=== PATIENT | female | born 1975 | race Caucasian/White ===

== ENCOUNTER 2017-07-23 12:06 | Outpatient (RCR) | payer OTHER, SELFPAY | END 2017-08-04 23:59 | LOC: NS 12:06 | PROVIDERS: Family Provider Internal Medicine; PCP Internal Medicine; Visit Provider Nurse Practitioner | DX: E66.9 Obesity, unspecified (principal); Z68.30 Body mass index [BMI] 30.0-30.9, adult; Z71.3 Dietary counseling and surveillance | CPT/HCPCS: 97803 ==

== ENCOUNTER 2017-08-20 10:30 | Outpatient (RCR) | payer OTHER, SELFPAY | END 2017-09-01 23:59 | LOC: NS 10:30 | PROVIDERS: Family Provider Internal Medicine; PCP Internal Medicine; Visit Provider Nurse Practitioner | DX: E66.9 Obesity, unspecified (principal); Z68.30 Body mass index [BMI] 30.0-30.9, adult; Z71.3 Dietary counseling and surveillance | CPT/HCPCS: 97803 ==

== ENCOUNTER 2017-10-01 08:00 | Outpatient (RCR) | payer OTHER, SELFPAY | END 2017-10-02 23:59 | LOC: NS 08:00 | PROVIDERS: Family Provider Internal Medicine; PCP Internal Medicine; Visit Provider Nurse Practitioner | DX: E66.9 Obesity, unspecified (principal); R63.5 Abnormal weight gain; Z68.30 Body mass index [BMI] 30.0-30.9, adult; Z71.3 Dietary counseling and surveillance | CPT/HCPCS: 97803 ==

== ENCOUNTER 2017-10-29 08:00 | Outpatient (RCR) | payer OTHER, SELFPAY | END 2017-11-01 23:59 | LOC: NS 08:00 | PROVIDERS: Family Provider Internal Medicine; PCP Internal Medicine; Visit Provider Nurse Practitioner | DX: E66.9 Obesity, unspecified (principal); R63.5 Abnormal weight gain; Z68.30 Body mass index [BMI] 30.0-30.9, adult; Z71.3 Dietary counseling and surveillance | CPT/HCPCS: 97803 ==

== ENCOUNTER 2018-06-16 07:59 | Day surgery (SDC) | payer OTHER, SELFPAY ==
--- NOTE | 2018-06-15 22:15 | PCM.HP.BLA ---
History and Physical Date of Admission: 06/16/18 HISTORY OF PRESENT ILLNESS 43 year old woman presents with an infected cystic lesion right upper lateral breast. It became larger with increasing pain and redness and swelling. It improved with Keflex antibiotics. She denies any nipple discharge. She denies any fever. She denies any trauma. She had a mammogram and ultrasound done last June and no suspicious abnormalities were seen. She presents at this time for further evaluation and treatment. PAST MEDICAL HISTORY Breast cyst Environmental allergies PAST SURGICAL HISTORY section. MEDICATIONS None. ALLERGIES Sulfa (Sulfonamide Antibiotics). FAMILY HISTORY Grandfather - Colon cancer SOCIAL HISTORY Smoking Status: Never smoker alcohol intake: current substance use type: does not use additional social history: DOES USE IBUPROFEN DOES NOT USE ASPIRIN REVIEW OF SYSTEMS General - Denies fever, fatigue, and weight loss. Eyes - Denies cataracts and glaucoma. ENT - Denies nasal congestion and sore throat. Endocrine - Denies excessive thirst and urination. Skin - Denies skin cancer. Has infected cystic lesion right upper lateral breast that improved with Keflex. Musculoskeletal - Denies joint pain, joint stiffness, weakness of muscles and joints, back pain, and arthritis. Neuro - Denies headaches. Cardiovascular - Denies chest pain, fatigue, and shortness of breath with exertion. Psych - Denies anxiety and depression. Respiratory - Denies chronic cough and shortness of breath. Gastrointestinal - Denies nausea, vomiting, diarrhea, and constipation. Hematologic - Denies abnormal bruising and bleeding. Genitourinary - Denies hematuria and urinary frequency. PHYSICAL EXAMINATION General - Alert and Oriented. HEENT - PERRL. EOMI. Throat is clear. No suspicious lesions noted. Neck - Supple and nontender. No cervical adenopathy. No suspicious lesions noted. Breasts - On the right upper lateral breast is a 12 mm cystic lesion that is slightly firm. No ulceration. Lesion is slightly tender to palpation. No cellulitis, fluctuance, or purulent drainage. Lungs - Clear to auscultation. Heart - Regular rate and rhythm. Abdomen - Soft and nondistended. Extremities - FROM. No axillary adenopathy. Radial pulses are palpable. No suspicious lesions noted. Neuro - CN II-XII grossly intact. Psych - Normal mood and affect. ASSESSMENT 12 mm infected cystic lesion right upper lateral breast. PLAN Recommend excision of this infected cystic lesion right upper lateral breast which can be done under local anesthesia and IV sedation on an outpatient basis. Will send tissue to Pathology for analysis to rule out carcinoma. If pus is seen at the time of surgery, then a wound culture will be obtained. May leave the wound open if pus is seen and proceed with Silver dressing changes daily. Depending on the healing, may proceed in a delayed fashion with a complex secondary wound closure. She had a mammogram and ultrasound done last June and no suspicious abnormalities were noted. If redness recurs prior to surgery, will restart her antibiotics. Patient was informed of the risks and complications of the procedure including alternatives to surgery. These were discussed with the patient personally. Patient voices understanding and wishes to proceed. Some of the risks and complications were included in a form from the [employer].
--- NOTE | 2018-06-16 | CYST_PTH ---
PATIENT: BRITNEY DESIR LOC: [facility] [place] U#:[id number] AGE/SX: 43/F ROOM: RE06/16/[address]: Dr. Clem Ceballos MD : 1975 BED: DIS: 06/16/2018 SPEC #: [id number] RECD: 06/16/18 13:11 STATUS: RUEL CHARLI #: [id number] DARIO: 06/16/18 00:[address]: Clem Ceballos DEPT: SURGICAL PATHOLOGY RECD BY: Emile Garrison ENTERED: 06/16/18 13:11 SP TYPE: Cyst OTHR DR: Dr. Kelsey Trivedi MD Tissues: Breast, NOS Procedures: Surgery Specimen Level IV HEADER OPERATION: Excision lesion upper lateral breast PRE-OP DIAGNOSIS: Infected cystic lesion right upper lateral breast TISSUE SUBMITTED: Infected cystic lesion right upper lateral breast MICROSCOPIC DIAGNOSIS Cystic lesion of right upper lateral breast, biopsy: Skin and soft tissue with epidermal inclusion cyst with associated chronic inflammation and associated fibrosis and changes consistent with rupture. No evidence of malignancy. AM:renaldo 06/17/18 MICROSCOPIC DESCRIPTION Slides are reviewed. GROSS DESCRIPTION Received in fixative is one container labeled with the patient's name and designated infected cystic lesion right upper lateral breast. The specimen consists of a shore-white skin ellipse measuring 1.5 x 0.4 cm and up to 0.3 cm in thickness. A suture is noted at one tip of the specimen. That half is inked with black ink. The opposite half is inked with blue ink. The specimen is not oriented for the positon of the suture. The specimen is longitudinally bisected and submitted entirely in one cassette. / SJ:rg 06/16/18 TC:5 CPT: 41307
[2018-06-16 08:37] LABS: Internal QC Validated? YES +Cl - CLEAR BKGD
[2018-06-16 08:38] VITALS: BP 91/66; PULSE 84; RESP 16; TEMP 37.5; O2SAT 99; BMI 27.9
[2018-06-16 08:40] LABS: Pregnancy, Urine Negative Negative
[2018-06-16] MEDS: Mupirocin Ointment 22gm Tube 1 APPLIC (11:05)
--- NOTE | 2018-06-16 11:16 | OP.PN_ITS ---
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 Post-Operative Diagnosis: Same. Surgery/Procedure Performed:: Excision 12 mm infected cystic lesion right upper lateral breast with 2.5 cm layered closure. Description of Surgical Findings:: 43 year old woman presents with an infected cystic lesion right upper lateral breast. It became larger with increasing pain and redness and swelling. It improved with Keflex antibiotics. She denies any nipple discharge. She denies any fever. She denies any trauma. She had a mammogram and ultrasound done last June which did not show any suspicious abnormalities. Today the patient underwent excision 12 mm infected cystic lesion right upper lateral breast with 2.5 cm layered closure. Estimated Blood Loss: 5 ml. Specimen's removed: Infected cystic lesion right upper lateral breast to Pathology and Microbiology. Drains: None. Type of Anesthesia:: Local - xylocaine with epinephrine. - Admit VTE Documentation VTE Present on Admission: No VTE Mechan Device Prophylaxis: SCD's VTE Pharm Prophylaxis ordered?: No
--- NOTE | 2018-06-16 11:23 | PCM.DC ---
You will use the following diet at home:: No restrictions Discharge Activity: May not drive while taking narcotic pain medications., May Shower - in two days. May shower in (days): 2 May resume sexual activity in: No Restrictions Weight Bearing Status: Weight bearing as tolerated Lifting Restrictions: 20 lbs. Call your doctor if your incision/area has: Continuous Slow Oozing, Sudden Increased Bleeding, Increased Pain/ Swelling, Increased Redness, Foul Smelling Discharge, Swelling at the incision site Call your doctor if you observe: Fever of 101 or Higher, Coldness, Increased Pain, Shortness of breath, Chest pain, Calf discomfort, Uncontrolled pain Suture Line Care: - - apply antibiotic ointment to suture line daily after operative dressing removed in two days. Remove Dressing in (days):: 2 Cleanse incision/area with: - - may get incision wet in the shower in two days. Allergies/Adverse Reactions: Allergies Sulfa (Sulfonamide Antibiotics) Allergy (Intermediate, Verified 06/07/18 08:28) WHOLE BODY RASH Medications to take at Discharge Cefadroxil [Duricef] 500 mg PO BID #14 cap 06/16/18 Oxycodone HCl/Acetaminophen [Percocet 5/325] 1 tab PO 4X/DAY PRN PRN 5 Days #20 tab 06/16/18 The following prescriptions were given: Oxycodone HCl/Acetaminophen [Percocet 5/325] 1 tab PO 4X/DAY PRN PRN 5 Days #20 tab PRN Reason: Pain Cefadroxil [Duricef] 500 mg PO BID #14 cap Primary Care Physician: Kelsey Trivedi MD [Primary Care Provider] - Test Results: Test results from this visit will be discussed in further detail at your follow-up appointment, if applicable. Please Follow Up With: Clem Ceballos MD When: one week. call [phone] for appt. Proposed Discharge Date: 06/16/18
--- NOTE | 2018-06-16 11:27 | DCINST_ITS ---
You will use the following diet at home:: No restrictions Discharge Activity: May not drive while taking narcotic pain medications., May Shower - in two days. May shower in (days): 2 May resume sexual activity in: No Restrictions Weight Bearing Status: Weight bearing as tolerated Lifting Restrictions: 20 lbs. Call your doctor if your incision/area has: Continuous Slow Oozing, Sudden Increased Bleeding, Increased Pain/ Swelling, Increased Redness, Foul Smelling Discharge, Swelling at the incision site Call your doctor if you observe: Fever of 101 or Higher, Coldness, Increased Pain, Shortness of breath, Chest pain, Calf discomfort, Uncontrolled pain Suture Line Care: - - apply antibiotic ointment to suture line daily after operative dressing removed in two days. Remove Dressing in (days):: 2 Cleanse incision/area with: - - may get incision wet in the shower in two days. Allergies/Adverse Reactions: Allergies Sulfa (Sulfonamide Antibiotics) Allergy (Intermediate, Verified 06/07/18 08:28) WHOLE BODY RASH Medications to take at Discharge Cefadroxil [Duricef] 500 mg PO BID #14 cap 06/16/18 Oxycodone HCl/Acetaminophen [Percocet 5/325] 1 tab PO 4X/DAY PRN PRN 5 Days #20 tab 06/16/18 The following prescriptions were given: Oxycodone HCl/Acetaminophen [Percocet 5/325] 1 tab PO 4X/DAY PRN PRN 5 Days #20 tab PRN Reason: Pain Cefadroxil [Duricef] 500 mg PO BID #14 cap Primary Care Physician: Kelsey Trivedi MD [Primary Care Provider] - Test Results: Test results from this visit will be discussed in further detail at your follow- up appointment, if applicable. Please Follow Up With: Clem Ceballos MD When: one week. call [phone] for appt. Proposed Discharge Date: 06/16/18
[2018-06-16] MEDS: Cefadroxil 500 MG CAPSULE 1000 MG PO (11:57)
--- NOTE | 2018-06-16 23:48 | PCM.OPRPT ---
Report of Operation Date of Procedure: 06/16/18 Pre-Operative Diagnosis: 12 mm infected cystic lesion right upper lateral breast. Post-Operative Diagnosis: Same. Surgery/Procedure Performed:: Excision 12 mm infected cystic lesion right upper lateral breast with 2.5 cm layered closure. Description of Surgical Findings:: 43 year old woman presents with an infected cystic lesion right upper lateral breast. It became larger with increasing pain and redness and swelling. It improved with Keflex antibiotics. She denies any nipple discharge. She denies any fever. She denies any trauma. She had a mammogram and ultrasound done last June which did not show any suspicious abnormalities. Patient was informed of the risks and complications of the procedure including alternatives to surgery. These were discussed with the patient personally. Patient voices understanding and wishes to proceed. Some of the risks and complications were included in a form from the [employer] [employer]. 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 Specimen's removed: Infected cystic lesion right upper lateral breast to Pathology and Microbiology. Drains: None. Estimated Blood Loss (mL): 5 ml. Description of Procedure: Patient was taken to OR in supine position. The right breast was prepped and draped in the usual fashion. SCD's were placed for DVT prophylaxis. Perioperative antibiotics were given orally since this was done under local anesthesia and no IV was placed. The right upper lateral breast area was infiltrated with xylocaine and epinephrine. After waiting 5 minutes for the anesthetic to take effect, The infected cystic lesion was excised in an oblique elliptical fashion into the subcutaneous tissue. Some dense scar tissue was seen that was also excised. No pus was seen. Some of the tissue was sent to Microbiology for culture. The rest of the lesion was sent to Pathology for analysis to rule out carcinoma. Hemostasis was obtained with electrocautery. The breast wound was closed in a layered fashion with 4-0 Monocryl interrupted sutures for the deep dermis and subcutaneous tissue. The skin was approximated with 4-0 Prolene simple interrupted sutures. Antibiotic ointment was applied to the suture line followed by a gauze dressing. The length of the suture line closure was 2.5 cm. Patient tolerated the procedure well and was sent to PACU in satisfactory condition. Patient will be sent home on antibiotics and pain medication. Patient will followup in a week for a wound check and for discussion of the pathology report and for discussion of the Microbiology report and for removal of the sutures. A positive culture may necessitate antibiotic modification. Grafts/Implants Used: None. - Complications None. - Admit VTE Documentation VTE Present on Admission: No VTE Mechan Device Prophylaxis: SCD's VTE Pharm Prophylaxis ordered?: No Code Visit Surgery Charges CPT - 29146 ICD-10 - N61.0, D49.2
--- OUTSIDE RECORDS SUMMARY | 2018-08-02 01:02 | XMS RPT_ITS ---
:1975 Author Organization OHIP Support Name Relationship Address Phone CARONATHALIEW Unavailable [address] + [place] [address] [facility] Unavailable [address] + [place] [address] ANDREW ELIZONDO Unavailable [address] + [place] [address] [facility] Unavailable [address] + [place] [address] ANDREW ELIZONDO Unavailable [address] + [place] [address] [facility] Unavailable [address] + [place] [address] ANDREW ELIZONDO Unavailable [address] + [place] [address] [facility] Unavailable [address] + [place] [address] Andrew Elizondo Unavailable [address] + [place] [address] [facility] Unavailable [address] + [place] [address] Lanie Albrecht Unavailable [address] + [place] [address] Andrew Elizondo Unavailable [address] [phone] [place] [address] [facility] Unavailable [address] + [place] [address] Lanie Albrecht Unavailable [address] + [place] [address] Andrew Elizondo Unavailable [address] [phone] [place] [address] [facility] Unavailable [address] + [place] [address] Lanie Albrecht Unavailable [address] + [place] [address] Andrew Elizondo Unavailable [address] [phone] [place] [address] [facility] Unavailable [address] + [place] [address] Lanie Albrecht Unavailable [address] + [place] [address] Andrew Elizondo Unavailable [address] [phone] [place] [address] [facility] Unavailable [address] + [place] [address] LANIE ALBRECHT Unavailable [address] + [place] [address] ANDREW ELIZONDO Unavailable [address] [phone] [place] [address] [facility] Unavailable [address] + [place] [address] Care Team Providers Name Role Phone GANTA, KELSEY Attending Unavailable RONN CASON ([facility]) Attending Unavailable GANTA, KELSEY Referring Unavailable GANTA, KELSEY Referring Unavailable GANTA, KELSEY Attending Unavailable RONN CASON ([facility]) Attending Unavailable GANTA, KELSEY Referring Unavailable RONN CASON ([facility]) Attending Unavailable Clem Ceballos Attending Unavailable Clem Ceballos Referring Unavailable Ganta, Kelsey Primary Care Unavailable Clem Ceballos Consulting Unavailable Clem Ceballos Attending Unavailable Clem Ceballos Referring Unavailable Ganta, Kelsey Primary Care Unavailable Clem Ceballos Consulting Unavailable Older Filomena NGOZI Attending Unavailable Older Filomena [employer] Referring Unavailable Ganta, Kelsey Primary Care Unavailable Older Filomena [employer] Attending Unavailable Older, Filomena [employer] Referring Unavailable Ganta, Kelsey Primary Care Unavailable [facility] Employee Attending Unavailable Shayy Spence Attending Unavailable Ganta, Kelsey Referring Unavailable Older [place] [employer] Attending Unavailable Older, Filomena [employer] Referring Unavailable Ganta, Kelsey Primary Care Unavailable Older, Filomena [employer] Attending Unavailable Older, Filomena [employer] Referring Unavailable Farooq, Kelsey Primary Care Unavailable Clem Ceballos Attending Unavailable Kelsey Milan Referring Unavailable Clem Ceballos Attending Unavailable Farooq, Kelsey Primary Care Unavailable Clem Ceballos Referring Unavailable PROBLEMS PROBLEMS DATE TYPE CONDITION / CODE ATTENDING STATUS SOURCE 06/20/2018 Unknown G89.18 - Other acute Clem Ceballos Active [facility] post[facility]cedural [facility] / G89.18(ICD-10) Hospital Repository 05/07/2018 Active Encounter for NA Active [facility] immunization / Clinic Main Z23(ICD-10) [facility] Repository 11/03/2017 Unknown E66.9 - Obesity, Older, Filomena [employer] Active [place] unspecified / Community E66.9(ICD-10) Hospital Repository 11/09/2017 Active Obesity, unspecified NA Active [facility] / E66.9(ICD-10) Clinic Main [facility] Rep[facility] 11/09/2017 Active Body mass index Active [facility] (bmi) 31.0-31.9, Clinic Main adult / [facility] Z68.31(ICD-10) Repository 11/09/2017 Active Encounter for NA Active [facility] screening for lipoid Clinic Main disorders / [facility] Z13.220(ICD-10) Repository 11/09/2017 Active Other fatigue / NA Active [facility] R53.83(ICD-10) Clinic Main [facility] Repository 11/09/2017 Active Abnormal results of Active [facility] thyroid function Clinic Main studies / [facility] R94.6(ICD-10) Repository PROCEDURES PROCEDURES No Procedure Records FoundRESULTS RESULTS PLASTIC SURGERY Observed: 06/28/2018 Status: F Source: [place] VISIT REPORT 7:44 PM [facility] [address] [facility] [address] [place] [address] OFFICE VISIT Date of Service: 06/22/18 MR#: [id number] Acct: [id number] Name: CARONGA Gregorio Rep #: [id number] : 1975 Provider: [place] Spence Age/Sex: 43/F Location: [facility] Status: Signed Intake Vital Signs06/22/18 Body Mass Index (BMI) 27.9 06/22/18 Blood Pressure 125/76 H H 06/22/18 Blood Pressure Location Rt brachial 06/22/18 Blood Pressure Position Sitting 06/22/18 Respiratory Rate 16 Intake Visit Reasons: post op surgery 06/16/18 Area Operations Director Required: No Accompanied by: None Is patient in pain?: No Allergies Sulfa (Sulfonamide Antibiotics) Allergy (Intermediate, Verified 06/22/18 09:12) WHOLE BODY RASH Medications Cefadroxil [Duricef] 500 mg PO BID #14 cap 06/16/18 [Rx] PFSH Medical History Breast cyst (Acute) Environmental allergies (Acute) Surgical History H/O: section (Acute) Family History Grandfather Colon cancer Social History Smoking Status: Never smoker alcohol intake: current substance use type: does not use additional social history: DOES USE IBUPROFEN DOES NOT USE ASPIRIN HPI post op surgery 06/16/18: Details: Postop visit from her recent surgery on 06/16/18 where she underwent excision 12 mm infected cystic lesion right upper lateral breast with 2.5 cm layered closure. Patient is doing well today. She denies any complaints. Her incision is dry and intact. Discussed pathology with patient. The lesion was an epidermal inclusion cyst with associated chronic inflammation and associated fibrosis and changes consistent with rupture. No evidence of malignancy. Operative culture was discussed with the patient. The culture was negative. Sutures were removed today without difficulty. Encouraged patient to massage the incision daily with skin lotion to help soften up the scar. Follow up on an as needed basis. Assessment AND Plan Problems 1. Epidermal inclusion cyst L72.0 2. Mastitis in female N61.0 Coding Level of Care Code Global Post Op Diagnoses Epidermal inclusion cyst L72.0 Mastitis in female N61.0 06/28/181943 <Electronically signed by Shayy Spence CLINICAL MANAGER-C> Date Shayy Spence CLINICAL MANAGER-C 06/27/1822<Electronically signed by Clem Ceballos MD> Cosigner Signature: Date (if applicable) Clem Ceballos MD CC: OPERATIVE REPORT Observed: 06/20/2018 Status: F Source: [place] 5:35 PM [facility] Medical Records Department [address] [place] [address] Operative Report 06/16/18 2348 MR#: [id number] Acct: [id number] Name: NGA ELIZONDO Rep #: [id number] : 1975 43 From: Clem Ceballos MD PCP: Kelsey Milan MD Status: [facility] [place] Location: [facility] Report of Operation Date of Procedure: 06/16/18 Pre-Operative Diagnosis: 12 mm infected cystic lesion right upper lateral breast. Post-Operative Diagnosis: Same. Surgery/Procedure Performed:: Excision 12 mm infected cystic lesion right upper lateral breast with 2.5 cm layered closure. Description of Surgical Findings:: 43 year old woman presents with an infected cystic lesion right upper lateral breast. It became larger with increasing pain and redness and swelling. It improved with Keflex antibiotics. She denies any nipple discharge. She denies any fever. She denies any trauma. She had a mammogram and ultrasound done last June which did not show any suspicious abnormalities. Patient was informed of the risks and complications of the procedure including alternatives to surgery. These were discussed with the patient personally. Patient voices understanding and wishes to proceed. Some of the risks and complications were included in a form from the [employer]. 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 Specimen's removed: Infected cystic lesion right upper lateral breast to Pathology and Microbiology. Drains: None. Estimated Blood Loss (mL): 5 ml. Description of Procedure: Patient was taken to OR in supine position. The right breast was prepped and draped in the usual fashion. SCD's were placed for DVT prophylaxis. Perioperative antibiotics were given orally since this was done under local anesthesia and no IV was placed. The right upper lateral breast area was infiltrated with xylocaine and epinephrine. After waiting 5 minutes for the anesthetic to take effect, The infected cystic lesion was excised in an oblique elliptical fashion into the subcutaneous tissue. Some dense scar tissue was seen that was also excised. No pus was seen. Some of the tissue was sent to Microbiology for culture. The rest of the lesion was sent to Pathology for analysis to rule out carcinoma. Hemostasis was obtained with electrocautery. The breast wound was closed in a layered fashion with 4-0 Monocryl interrupted sutures for the deep dermis and subcutaneous tissue. The skin was approximated with 4-0 Prolene simple interrupted sutures. Antibiotic ointment was applied to the suture line followed by a gauze dressing. The length of the suture line closure was 2.5 cm. Patient tolerated the procedure well and was sent to PACU in satisfactory condition. Patient will be sent home on antibiotics and pain medication. Patient will followup in a week for a wound check and for discussion of the pathology report and for discussion of the Microbiology report and for removal of the sutures. A positive culture may necessitate antibiotic modification. Grafts/Implants Used: None. - Complications None. - Admit VTE Documentation VTE Present on Admission: No VTE Mechan Device Prophylaxis: SCD's VTE Pharm Prophylaxis ordered?: No Code Visit Surgery Charges CPT - 24572 ICD-10 - N61.0, D49.2 06/20/18 1735 <Electronically signed by Clem Ceballos MD> Date Clem Ceballos MD CC: Kelsey Milan MD; Clem Ceballos MD Signed HISTORY AND PHYSICAL Observed: 06/19/2018 Status: F Source: [place] EXAM 1:20 AM [facility] Medical Records Department [address] [place] [address] History and Physical 06/15/18 2215 MR#: [id number] Acct: [id number] Name: NGA ELIZONDO Rep #: [id number] : 1975 43 From: Clem Ceballos MD PCP: Kelsey Milan MD Status: [facility] Y Location: [facility] History and Physical Date of Admission: 06/16/18 HISTORY OF PRESENT ILLNESS 43 year old woman presents with an infected cystic lesion right upper lateral breast. It became larger with increasing pain and redness and swelling. It improved with Keflex antibiotics. She denies any nipple discharge. She denies any fever. She denies any trauma. She had a mammogram and ultrasound done last June and no suspicious abnormalities were seen. She presents at this time for further evaluation and treatment. PAST MEDICAL HISTORY Breast cyst Environmental allergies PAST SURGICAL HISTORY section. MEDICATIONS None. ALLERGIES Sulfa (Sulfonamide Antibiotics). FAMILY HISTORY Grandfather - Colon cancer SOCIAL HISTORY Smoking Status: Never smoker alcohol intake: current substance use type: does not use additional social history: DOES USE IBUPROFEN DOES NOT USE ASPIRIN REVIEW OF SYSTEMS General - Denies fever, fatigue, and weight loss. Eyes - Denies cataracts and glaucoma. ENT - Denies nasal congestion and sore throat. Endocrine - Denies excessive thirst and urination. Skin - Denies skin cancer. Has infected cystic lesion right upper lateral breast that improved with Keflex. Musculoskeletal - Denies joint pain, joint stiffness, weakness of muscles and joints, back pain, and arthritis. Neuro - Denies headaches. Cardiovascular - Denies chest pain, fatigue, and shortness of breath with exertion. Psych - Denies anxiety and depression. Respiratory - Denies chronic cough and shortness of breath. Gastrointestinal - Denies nausea, vomiting, diarrhea, and constipation. Hematologic - Denies abnormal bruising and bleeding. Genitourinary - Denies hematuria and urinary frequency. PHYSICAL EXAMINATION General - Alert and Oriented. HEENT - PERRL. EOMI. Throat is clear. No suspicious lesions noted. Neck - Supple and nontender. No cervical adenopathy. No suspicious lesions noted. Breasts - On the right upper lateral breast is a 12 mm cystic lesion that is slightly firm. No ulceration. Lesion is slightly tender to palpation. No cellulitis, fluctuance, or purulent drainage. Lungs - Clear to auscultation. Heart - Regular rate and rhythm. Abdomen - Soft and nondistended. Extremities - FROM. No axillary adenopathy. Radial pulses are palpable. No suspicious lesions noted. Neuro - CN II-XII grossly intact. Psych - Normal mood and affect. ASSESSMENT 12 mm infected cystic lesion right upper lateral breast. PLAN Recommend excision of this infected cystic lesion right upper lateral breast which can be done under local anesthesia and IV sedation on an outpatient basis. Will send tissue to Pathology for analysis to rule out carcinoma. If pus is seen at the time of surgery, then a wound culture will be obtained. May leave the wound open if pus is seen and proceed with Silver dressing changes daily. Depending on the healing, may proceed in a delayed fashion with a complex secondary wound closure. She had a mammogram and ultrasound done last June and no suspicious abnormalities were noted. If redness recurs prior to surgery, will restart her antibiotics. Patient was informed of the risks and complications of the procedure including alternatives to surgery. These were discussed with the patient personally. Patient voices understanding and wishes to proceed. Some of the risks and complications were included in a form from the [employer]. 06/19/18 0120 <Electronically signed by Clem Ceballos MD> Date Clem Ceballos MD Cosigner Signature: Date (if applicable) CC: Kelsey Milan MD; Clem Ceballos MD Signed DISCHARGE INSTRUCTION Observed: 06/16/2018 Status: F Source: [place] 11:28 AM [facility] Medical Records Department [address] [place] [address] Instructions for Home/Discharge Instructions 06/16/18 1123 MR#: [id number] Acct: [id number] Name: NGA ELIZONDO Rep #: [id number] : 1975 43 From: Clem Ceballos MD PCP: Kelsey Milan MD Status: [facility] You will use the following diet at home:: No restrictions Discharge Activity: May not drive while taking narcotic pain medications., May Shower - in two days. May shower in (days): 2 May resume sexual activity in: No Restrictions Weight Bearing Status: Weight bearing as tolerated Lifting Restrictions: 20 lbs. Call your doctor if your incision/area has: Continuous Slow Oozing, Sudden Increased Bleeding, Increased Pain/ Swelling, Increased Redness, Foul Smelling Discharge, Swelling at the incision site Call your doctor if you observe: Fever of 101 or Higher, Coldness, Increased Pain, Shortness of breath, Chest pain, Calf discomfort, Uncontrolled pain Suture Line Care: - - apply antibiotic ointment to suture line daily after operative dressing removed in two days. Remove Dressing in (days):: 2 Cleanse incision/area with: - - may get incision wet in the shower in two days. Allergies/Adverse Reactions: Allergies Sulfa (Sulfonamide Antibiotics) Allergy (Intermediate, Verified 06/07/18 08:28) WHOLE BODY RASH Medications to take at Discharge Cefadroxil [Duricef] 500 mg PO BID #14 cap 06/16/18 Oxycodone HCl/Acetaminophen [Percocet 5/325] 1 tab PO 4X/DAY PRN PRN 5 Days #20 tab 06/16/18 The following prescriptions were given: Oxycodone HCl/Acetaminophen [Percocet 5/325] 1 tab PO 4X/DAY PRN PRN 5 Days #20 tab PRN Reason: Pain Cefadroxil [Duricef] 500 mg PO BID #14 cap Primary Care Physician: Kelsey Milan MD [Primary Care Provider] - Test Results: Test results from this visit will be discussed in further detail at your follow-up appointment, if applicable. Please Follow Up With: Clem Ceballos MD When: one week. call [phone] for appt. Proposed Discharge Date: 06/16/18 06/16/18 1128 <Electronically signed by Clem Ceballos MD> Date lCem Ceballos MD CC: Kelsey Milan MD Observed: 06/16/2018 Status: F Source: [place] CULTURE, DEEP WOUND 11:00 AM [facility] Order Date: 02/03/17 Has pt arrived? Y Comments: INFECTED CYSTIC LESION RIGHT UPPER LATERAL BREAST Gram Stain Gram Stain 1+ Red Cell Stroma No organisms seen Wound Culture No growth aerobically. Cult, Anaerobic No growth in 5 days. Performed By: #### M100.1500 #### [facility] [address] [place], [address] Observed: 06/16/2018 Status: F Source: [place] CULTURE, FUNGUS W/ 11:00 AM [facility] [id number] REPOSITORY Comments: INFECTED CYSTIC LESION RIGHT UPPER LATERAL BREAST Has pt arrived? Y Is this test to exclude patient from TB Isolation? N Cu,[id number] TESTING PERFORMED AT [facility]. ORIGINAL REPORT ON FILE IN LAB CONTAINS ADDITIONAL TEST SITE INFORMATION. CUF No yeast or mold isolated after [address] TESTING PERFORMED AT [facility]. ORIGINAL REPORT ON FILE IN LAB CONTAINS ADDITIONAL TEST SITE INFORMATION. Fungus Stain No yeast or mold observed. Performed By: #### M600.1900 #### [facility] [address] [place] [address]. [place], [place], [address] ,URINE Collected: 06/16/2018 Status: F Source: [place] 8:20 AM [facility] TYPE CODE TESTS RESULT OUT OF REFERENCE UNITS RANGE LAB L400.8000 Negative Normal HCGUQUAL Negative Result Comment: Very dilute urine specimens, as indicated by a low specific gravity, may not contain direct sales representative levels of hCG. If is still suspected, a first morning urine specimen should be collected 48 hours later and tested. Performed By: #### L400.7600 #### [facility] [address] [place] [address]. [place], [address] CYST Observed: 06/16/2018 Status: F Source: [place] 12:00 AM [facility] Patient: NGA ELIZONDO : 1975 (43/F) Acct Num: [id number] Phys: Clem Ceballos MD Unit Num: [id number] Loc: [facility] Specimen: [id number] Received: 06/16/18 - 1310 Spec Type: Cyst TISSUES 1 TISSUES: Breast, NOS GROSS DESCRIPTION Received in fixative is one container labeled with the patient's name and designated infected cystic lesion right upper lateral breast. The specimen consists of a shore-white skin ellipse measuring 1.5 x 0.4 cm and up to 0.3 cm in thickness. A suture is noted at one tip of the specimen. That half is inked with black ink. The opposite half is inked with blue ink. The specimen is not oriented for the positon of the suture. The specimen is longitudinally bisected and submitted entirely in one cassette. / SJ:renaldo 06/16/18 TC:5 CPT: 40774 HEADER OPERATION: Excision lesion upper lateral breast PRE-OP DIAGNOSIS: Infected cystic lesion right upper lateral breast TISSUE SUBMITTED: Infected cystic lesion right upper lateral breast MICROSCOPIC DESCRIPTION Slides are reviewed. MICROSCOPIC DIAGNOSIS Cystic lesion of right upper lateral breast, biopsy: Skin and soft tissue with epidermal inclusion cyst with associated chronic inflammation and associated fibrosis and changes consistent with rupture. No evidence of malignancy. AM:renaldo 06/17/18 Signed Kristian Smith DO 06/17/18 <signature on file> Performed By: #### PCYST #### [facility] [address] [place] [address]. [place], [address] PLASTIC SURGERY Observed: 05/15/2018 Status: F Source: [place] VISIT REPORT 2:05 PM [facility] [address] [facility] [address] [place], [place] [address] OFFICE VISIT Date of Service: 05/12/18 MR#: [id number] Acct: [id number] Name: NGA ELIZONDO Rep #: [id number] : 1975 Provider: Clem Ceballos MD Age/Sex: 43/F Location: [facility] Status: Signed Intake Vital Signs05/12/18 Height 4 ft 8.5 in 05/12/18 Weight: 129 lb 8 oz Intake Visit Reasons: evaluation infected cystic lesion right upper lateral breast Area Operations Director Required: No Accompanied by: None Is patient in pain?: No Allergies Sulfa (Sulfonamide Antibiotics) Allergy (Intermediate, Verified 05/12/18 15:11) WHOLE BODY RASH Is last menstrual period known: Yes Post menopausal: No Patient : No PFSH Medical History Breast cyst (Acute) Environmental allergies (Acute) Surgical History H/O: section (Acute) Family History Grandfather Colon cancer Social History Smoking Status: Never smoker alcohol intake: current substance use type: does not use additional social history: DOES USE IBUPROFEN DOES NOT USE ASPIRIN HPI evaluation infected cystic lesion right upper lateral breast: Details: HISTORY OF PRESENT ILLNESS 43 year old woman presents with an infected cystic lesion right upper lateral breast. It became larger with increasing pain and redness and swelling. It improved with Keflex antibiotics. She denies any nipple discharge. She denies any fever. She denies any trauma. She states her last mammogram were within the last year at the [facility]. She presents at this time for further evaluation and treatment. REVIEW OF SYSTEMS General - Denies fever, fatigue, and weight loss. Eyes - Denies cataracts and glaucoma. ENT - Denies nasal congestion and sore throat. Endocrine - Denies excessive thirst and urination. Skin - Denies skin cancer. Has infected cystic lesion right upper lateral breast that improved with Keflex. Musculoskeletal - Denies joint pain, joint stiffness, weakness of muscles and joints, back pain, and arthritis. Neuro - Denies headaches. Cardiovascular - Denies chest pain, fatigue, and shortness of breath with exertion. Psych - Denies anxiety and depression. Respiratory - Denies chronic cough and shortness of breath. Gastrointestinal - Denies nausea, vomiting, diarrhea, and constipation. Hematologic - Denies abnormal bruising and bleeding. Genitourinary - Denies hematuria and urinary frequency. PHYSICAL EXAMINATION General - Alert and Oriented. HEENT - PERRL. EOMI. Throat is clear. No suspicious lesions noted. Neck - Supple and nontender. No cervical adenopathy. No suspicious lesions noted. Breasts - On the right upper lateral breast is a 12 mm cystic lesion that is slightly firm. No ulceration. Lesion is slightly tender to palpation. No cellulitis, fluctuance, or purulent drainage. Lungs - Clear to auscultation. Heart - Regular rate and rhythm. Abdomen - Soft and nondistended. Extremities - FROM. No axillary adenopathy. Radial pulses are palpable. No suspicious lesions noted. Neuro - CN II-XII grossly intact. Psych - Normal mood and affect. ASSESSMENT 12 mm infected cystic lesion right upper lateral breast. PLAN Recommend excision of this infected cystic lesion right upper lateral breast which can be done under local anesthesia and IV sedation on an outpatient basis. Will send tissue to Pathology for analysis to rule out carcinoma. If pus is seen at the time of surgery, then a wound culture will be obtained. May leave the wound open if pus is seen and proceed with Silver dressing changes daily. Depending on the healing, may proceed in a delayed fashion with a complex secondary wound closure. Prior to surgery will obtain the mammogram report that she states was done earlier in the year at the [facility]. If redness recurs prior to surgery, will restart her antibiotics. Patient was informed of the risks and complications of the procedure including alternatives to surgery. These were discussed with the patient personally. Patient voices understanding and wishes to proceed. Some of the risks and complications were included in a form from the [employer]. Assessment AND Plan Problems 1. 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 Mastitis in female N61.0 05/15/18 1405 <Electronically signed by Clem Ceballos MD> Date Clem Ceballos MD Cosigner Signature: Date (if applicable) CC: Kelsey Milan MD CNNURSE Observed: 05/07/2018 Status: COMPLETED Source: [facility] 9:50 AM [facility] REPOSITORY Nurse Visit (CORWST) NGA ELIZONDO ([id number]) 1975 F Date Time Provider Department 05/07/18 9:50 AM [facility] During your visit today, we recorded the following information about you: Caleb Enoc SCHWARZ 05/07/2018 10:06 AM Signed 43 year old female here for INACTIVATED INFLUENZA VACCINE. [id number] Season Patient is identified by name and date of : Yes [] CONTRAINDICATIONS color enhanced section Age less than 6 months? No Allergy to eggs, chicken, chicken feathers, or chicken dander? No Allergy to thimerosal (a preservative) or formaldehyde, gelatin? No History of severe reaction to any vaccine component or a previous dose of influenza vaccination? No History of Guillain-Darlington Syndrome within 6 weeks after a previous influenza vaccine? No Patient is not moderately or severely ill? No Current temperature greater or equal to 100.4F? No History of Bone Marrow Transplant prior 6 months or solid organ transplant in the past 3 months ? No History of fainting after a prior injection or medical procedure? No- ? If patient has fainted in the past, the CDC recommends sitting or lying down for 15 minutes after the vaccination. [] VERIFICATION color enhanced section Was the answer Yes for any of the above contraindications? No contraindications present. Acceptable to proceed with vaccine. Patient/guardian agrees the above answers are true to the best of their knowledge? Yes Flu vaccine information sheet given? Yes See immunization activity in [facility] for details of immunizations adminstered today. Patient age: [age] year old For The 1918-3042 Flu Season 6-35 months old: Fluzone 0.25 ml - IM (Preservative Free) 3 years of age: Fluzone 0.5 ml - IM (Preservative Free) 3 years and older: Fluzone 0.5 ml- IM-(with Preservatives) 65+ years old: 2-49 years old Fluzone High-Dose 0.5 ml - IM (Preservative Free) FLUMIST- intranasal REMEMBER: If patient is less than 9 years of age and this is the first vaccine of Influenza to be received in any flu season, they should receive a second dose in one months time. Referring Provider: SELF [200] Allergies As of Date: 05/07/2018 Noted Allergy Reaction SULFA (SULFONAMIDE ANTIBIOTICS) 11/02/2008 2 - Rash Date Reviewed: 04/11/2018 Reviewed by: Rupali Estevez Ma - Fully Assessed Reason for Visit: Imm/Inj [58] Cmt: Flu Vaccine Primary Visit Diagnosis:Need for vaccination [Z23] Order(s):INFLUENZA VACCINE QUADRIVALENT AGE 3 YRS PLUS + IM [[id number]] Order #: [id number] Prescriptions as of 05/07/2018 Sig: BUPROPION XL 150 MG TAB Take 1 tablet by mouth once d* HYDROCORTISONE ACETATE 25 MG * 1 Suppository by RECTAL route* Patient not taking: Reported on 12/14/2017 * MULTIVITAMIN TABLET Take one(1) tablet daily. Problem List As Of Date 05/07/2018 Noted Resolved Cervicalgia [M54.2] INVALID FOR* Other symptoms involving head and neck [R68.89] INVALID FOR* Backache, unspecified [M54.9] INVALID FOR* Pain in joint, pelvic region and thigh [M25.559]INVALID FOR* Enlarged uterus [N85.2] INVALID FOR* Encounter Status:Closed by CALEB SANON LPN on 05/07/18 PROGRESS Observed: 05/03/2018 Status: COMPLETED Source: [facility] 4:13 PM [facility] [place] REPOSITORY HNO ID: [id number] Author: Caleb Sanon LPN Service: (none) Author Type: (none) Type: Progress Notes Filed: 05/07/2018 10:06 AM Note Text: 43 year old female here for INACTIVATED INFLUENZA VACCINE. [id number] Season Patient is identified by name and date of : Yes [] CONTRAINDICATIONS color enhanced section Age less than 6 months? No Allergy to eggs, chicken, chicken feathers, or chicken dander? No Allergy to thimerosal (a preservative) or formaldehyde, gelatin? No History of severe reaction to any vaccine component or a previous dose of influenza vaccination? No History of Guillain-Darlington Syndrome within 6 weeks after a previous influenza vaccine? No Patient is not moderately or severely ill? No Current temperature greater or equal to 100.4F? No History of Bone Marrow Transplant prior 6 months or solid organ transplant in the past 3 months ? No History of fainting after a prior injection or medical procedure? No- ? If patient has fainted in the past, the CDC recommends sitting or lying down for 15 minutes after the vaccination. [] VERIFICATION color enhanced section Was the answer Yes for any of the above contraindications? No contraindications present. Acceptable to proceed with vaccine. Patient/guardian agrees the above answers are true to the best of their knowledge? Yes Flu vaccine information sheet given? Yes See immunization activity in [facility] for details of immunizations adminstered today. Patient age: [age] year old For The 9032-7011 Flu Season 6-35 months old: Fluzone 0.25 ml - IM (Preservative Free) 3 years of age: Fluzone 0.5 ml - IM (Preservative Free) 3 years and older: Fluzone 0.5 ml- IM-(with Preservatives) 65+ years old: 2-49 years old Fluzone High-Dose 0.5 ml - IM (Preservative Free) FLUMIST- intranasal REMEMBER: If patient is less than 9 years of age and this is the first vaccine of Influenza to be received in any flu season, they should receive a second dose in one months time. PROGRESS Observed: 04/11/2018 Status: COMPLETED Source: [facility] 8:22 AM [facility] REPOSITORY HNO ID: [id number] Author: Ronn Cason Service: (none) Author Type: Nurse Practitioner Type: Progress Notes Filed: 04/11/2018 8:43 AM Note Text: CC: Patient presents with: Derm Problem: Infected Cyst, puppet master recommended it being removed last November HPI Nga Elizondo is a 43 year old female who presents today for infected cyst to right chest x1 week. Patient reports chronic cyst like structure to right anterior chest. Reports she has had it expressed several times in the past by her puppet master. Most recently area has become enlarged over the past several weeks with noted redness, pain and pus like drainage x1 day. Notes area has decreased in size. Associated symptoms include itching and burning of the area. Attempted neosporin for relief. REVIEW OF SYSTEMS General: no fevers, no chills, no night sweats and no change in energy Respiratory: no cough, no wheezing, no shortness of breath, no hemoptysis Cardiovascular: no chest pain, no chest pressure, no palpitations and no swelling Skin: See HPI PAST MEDICAL HISTORY Diagnosis Date - NEGATIVE MEDICAL HISTORY PAST SURGICAL HISTORY Procedure Laterality Date - ANESTH, SECTION 04/29/2005 - PAST SURGICAL HISTORY OF wisdom teeth extract ALLERGIES Sulfa (Sulfonamide Antibiotics) MEDICATIONS buPROPion XL (WELLBUTRIN XL) 150 mg 24 hr tablet Take 1 tablet by mouth once daily. hydrocortisone (ANUSOL-HC) 25 mg suppository 1 Suppository by RECTAL route twice daily as needed. multivitamin (DAILY MULTI-VITAMIN) ORAL tablet Take one(1) tablet daily. FAMILY HISTORY Problem Relation Age of Onset - Thyroid Mother hypothyroidism - Prostate Cancer Father - Diabetes Maternal Grandmother - Headache Paternal Grandmother - Colon Cancer Paternal Grandfather Social History Substance Use Topics - Smoking status: Never Smoker - Smokeless tobacco: Never Used - Alcohol use Yes Comment: rare PHYSICAL EXAM BP 124/66 Pulse 76 Temp 37 ?C (98.6 ?F) (Temporal Artery) Resp 16 Wt 58.5 kg (129 lb) SpO2 98% BMI 28.92 kg/m? General Appearance: well appearing, in no acute distress, alert Skin: Skin color, texture, turgor normal for age; Positive erythematous nodule to right anterior chest +fluctuance, no active drainage Head: normocephalic, atraumatic Lungs: Lungs clear to auscultation. No wheezing, rhonchi, rales Heart: RRR without murmur, gallop, or rubs. No ectopy INFLUENZA(1) due on 03/05/2018 MAMMOGRAM due on 06/14/2018 DTAP,TDAP,TD(2 - Td) due on 12/25/2018 DIABETES SCREEN due on 11/09/2020 PAP EVERY 5 YEARS due on 07/20/2022 HPV EVERY 5 YEARS due on 07/20/2022 LIPID SCREEN due on 11/09/2022 ASSESSMENT/PLAN: 1. Cutaneous abscess of chest wall - ICD9: 682.2, ICD10: L02.213 - Begin treatment with Cephalaxin (Keflex) - Warm compresses - Discussed consult to derm vs gen surgery for excision once infection clears, patient to decide consult preference and notify office - No lymphangetic streaking, this was defined for patient to watch for and to seek medical care immediately if appears - Area of cellulitis defined with pen, seek further attention if this area continues to enlarge - Follow up for recheck in 3 days, sooner for new or worsening symptoms - CEPHALEXIN 500 MG CAPSULE Ronn Cason APRN.NGOZI Prescription instructions reviewed with patient as applicable. Potential red flag symptoms discussed with the patient. Reviewed appropriate action plan to take if red flag symptoms occur. Patient agreeable to treatment plan. CNOV Observed: 04/11/2018 Status: COMPLETED Source: [facility] 8:00 AM [facility] REPOSITORY Office Visit (INTMWS) NGA ELIZONDO ([id number]) 1975 F Date Time Provider Department 04/11/18 8:00 AM RONN CASON ([employer]) INTMWS During your visit today, we recorded the following information about you: Temperature Pulse Respiration Blood pressure 98.6 degrees 76/minute 16/minute 124/66 Weight 58.5 kg Ronn Cason APRN.CNP 04/11/2018 8:43 AM Signed CC: Patient presents with: Derm Problem: Infected Cyst, puppet master recommended it being removed last November HPI Nga Elizondo is a 43 year old female who presents today for infected cyst to right chest x1 week. Patient reports chronic cyst like structure to right anterior chest. Reports she has had it expressed several times in the past by her puppet master. Most recently area has become enlarged over the past several weeks with noted redness, pain and pus like drainage x1 day. Notes area has decreased in size. Associated symptoms include itching and burning of the area. Attempted neosporin for relief. REVIEW OF SYSTEMS General: no fevers, no chills, no night sweats and no change in energy Respiratory: no cough, no wheezing, no shortness of breath, no hemoptysis Cardiovascular: no chest pain, no chest pressure, no palpitations and no swelling Skin: See HPI PAST MEDICAL HISTORY Diagnosis Date - NEGATIVE MEDICAL HISTORY PAST SURGICAL HISTORY Procedure Laterality Date - ANESTH, SECTION 04/29/2005 - PAST SURGICAL HISTORY OF wisdom teeth extract ALLERGIES Sulfa (Sulfonamide Antibiotics) MEDICATIONS buPROPion XL (WELLBUTRIN XL) 150 mg 24 hr tablet Take 1 tablet by mouth once daily. hydrocortisone (ANUSOL-HC) 25 mg suppository 1 Suppository by RECTAL route twice daily as needed. multivitamin (DAILY MULTI-VITAMIN) ORAL tablet Take one(1) tablet daily. FAMILY HISTORY Problem Relation Age of Onset - Thyroid Mother hypothyroidism - Prostate Cancer Father - Diabetes Maternal Grandmother - Headache Paternal Grandmother - Colon Cancer Paternal Grandfather Social History Substance Use Topics - Smoking status: Never Smoker - Smokeless tobacco: Never Used - Alcohol use Yes Comment: rare PHYSICAL EXAM BP 124/66 Pulse 76 Temp 37 ?C (98.6 ?F) (Temporal Artery) Resp 16 Wt 58.5 kg (129 lb) SpO2 98% BMI 28.92 kg/m? General Appearance: well appearing, in no acute distress, alert Skin: Skin color, texture, turgor normal for age; Positive erythematous nodule to right anterior chest +fluctuance, no active drainage Head: normocephalic, atraumatic Lungs: Lungs clear to auscultation. No wheezing, rhonchi, rales Heart: RRR without murmur, gallop, or rubs. No ectopy INFLUENZA(1) due on 03/05/2018 MAMMOGRAM due on 06/14/2018 DTAP,TDAP,TD(2 - Td) due on 12/25/2018 DIABETES SCREEN due on 11/09/2020 PAP EVERY 5 YEARS due on 07/20/2022 HPV EVERY 5 YEARS due on 07/20/2022 LIPID SCREEN due on 11/09/2022 ASSESSMENT/PLAN: 1. Cutaneous abscess of chest wall - ICD9: 682.2, ICD10: L02.213 - Begin treatment with Cephalaxin (Keflex) - Warm compresses - Discussed consult to derm vs gen surgery for excision once infection clears, patient to decide consult preference and notify office - No lymphangetic streaking, this was defined for patient to watch for and to seek medical care immediately if appears - Area of cellulitis defined with pen, seek further attention if this area continues to enlarge - Follow up for recheck in 3 days, sooner for new or worsening symptoms - CEPHALEXIN 500 MG CAPSULE Ronn Cason APRN.CNP Prescription instructions reviewed with patient as applicable. Potential red flag symptoms discussed with the patient. Reviewed appropriate action plan to take if red flag symptoms occur. Patient agreeable to treatment plan. Ronn Cason APRN.CNP 04/11/2018 8:33 AM Signed Warm compresses to right chest 2-3x time a day. Please expect some drainage. If while on the antibiotic you notice any worsening of the area, increased pain or fevers please notify office. Referring Provider: SELF [200] Allergies As of Date: 04/11/2018 Noted Allergy Reaction SULFA (SULFONAMIDE ANTIBIOTICS) 11/02/2008 2 - Rash Date Reviewed: 04/11/2018 Reviewed by: Rupali Estevez Ma - Fully Assessed Reason for Visit: Derm Problem [33] Cmt: Infected Cyst, puppet master recommended it being removed last November Primary Visit Diagnosis:Cutaneous abscess of chest wall [L02.213] Order(s):cephALEXin (KEFLEX) 500 mg capsuleTake 1 capsule by mouth four times daily for 10 days.Disp: 40 capsuleRfl: 0 Prescriptions as of 04/11/2018 Sig: CEPHALEXIN 500 MG CAPSULE Take 1 capsule by mouth four * BUPROPION XL 150 MG TAB Take 1 tablet by mouth once d* HYDROCORTISONE ACETATE 25 MG * 1 Suppository by RECTAL route* Patient not taking: Reported on 12/14/2017 * MULTIVITAMIN TABLET Take one(1) tablet daily. Problem List As Of Date 04/11/2018 Noted Resolved Cervicalgia [M54.2] INVALID FOR* Other symptoms involving head and neck [R68.89] INVALID FOR* Backache, unspecified [M54.9] INVALID FOR* Pain in joint, pelvic region and thigh [M25.559]INVALID FOR* Enlarged uterus [N85.2] INVALID FOR* Other instructions from your clinician: Warm compresses to right chest 2-3x time a day. Please expect some drainage. If while on the antibiotic you notice any worsening of the area, increased pain or fevers please notify office. Prescriptions ordered this encounter Disp Refills Start End CEPHALEXIN 500 MG CAPSULE 40 c* 0 04/11/2018 04/21/2018 Route: ORAL Sig: Take 1 capsule by mouth four times daily for 10 days. Encounter Status:Closed by RONN CASON CNP on 04/11/18 PROGRESS Observed: 02/11/2018 Status: COMPLETED Source: [facility] 3:42 PM [facility] RE[facility] O ID: [id number] Author: Ronn Cason Service: (none) Author Type: Nurse Practitioner Type: Progress Notes Filed: 02/11/2018 5:15 PM Note Text: CC: Nga Elizondo is a 42 year old female who presents for weight loss medication follow up. HPI Currently taking Adipex. Starting Month 2 of 2 Denies: abdominal pain, nausea, vomiting, diarrhea, fevers, constipation, headache, change in urination, lightheadedness, weakness, numbness or tingling to arms or legs, edema, palpitations, sleep disturbances, impairment of concentration/attention, difficulty with memory, speech or language problems (particularly word-finding difficulties). Reports: Dry mouth, but drinks more water or chews gum. Noted some initial constipation, but seems to have resolved. If DM any hypo/hyperglycemiaNot applicable DIET Serving of fruits:1-2 Servings of vegetables:1-2 Servings of protein: 2-3 Fluid intake:Coffee/tea: 1 glasses per day Water: 5-6 glasses per day Do you Skip meals:YES Which meals do you tend to skip? Breakfast Eating away from home:YES 3-4 times a week Nutrition consult placed patient has been participating in the [facility] and seeing dietitian previously Exercise routine: YES Program: Moderate regular exercise program walking at least 1 mile a day and [address]189 step goal Frequency: 7 times per day Weight/BMI Last 1 Encounter Wt Readings: Date: Wt: 01/12/2018 63.5 kg (140 lb) BMI 30.71 kg/(m2) Last visit Wt: 63.5 kg (140 lb) BMI: 31.39 kg/(m2) Weight change since last visit: How much: 3 lbs, How lon month Percent of Weight Loss: 2.1% Over 1 months ROS as above, otherwise non-contributory. Reviewed PMHx, PSHx, social Hx, medications and allergies. PHYSICAL EXAM BP 120/80 Pulse 85 Temp 37.1 ?C (98.8 ?F) (Temporal Artery) Resp 16 Wt 62.1 kg (137 lb) SpO2 98% BMI 30.71 kg/m? General Appearance: well appearing, in no acute distress, alert Skin: Skin color, texture, turgor normal for age; Head: normocephalic, atraumatic Lungs: Lungs clear to auscultation. No wheezing, rhonchi, rales Heart: RRR without murmur, gallop, or rubs. No ectopy ASSESSMENT/PLAN: 1. Class 1 obesity without serious comorbidity with body mass index (BMI) of 31.0 to 31.9 in adult, unspecified obesity type - ICD9: 278.00, V85.31, ICD10: E66.9, Z68.31 - PHENTERMINE 37.5 MG CAPSULE - Continue diet consisting of counting calories and portion control. - Reduce sugary drinks of artificial juices and sodas and replace with water and low calorie Crystal Light. - Healthy Snack alternatives have been discussed and will attempt more fruits and vegetables. - encouraged 3 meals a day - Continueexercise or meaningful activity for 20 minutes at lest 3 times a day PDMP website checked and validated. All prescriptions have been APPROPRIATELY filled. No suspicious activity was identified. 02/11/2018 by Ronn Cason APRN.[employer] - reviewed SE, medication expectations, required weight loss of 5%, monthly monitoring and medication duration of use (3 months on 6 months off) Prescription instructions reviewed with patient as applicable. Potential red flag symptoms discussed with the patient. Reviewed appropriate action plan to take if red flag symptoms occur. Patient agreeable to treatment plan. Ronn Cason APRN.CNP CNOV Observed: 02/11/2018 Status: COMPLETED Source: [facility] 3:00 PM [facility] REPOSITORY Office Visit (INTMWS) NGA ELIZONDO ([id number]) 1975 F Date Time Provider Department 02/11/18 3:00 PM RONN CASON (NGOZI) INTMWS During your visit today, we recorded the following information about you: Temperature Pulse Respiration Blood pressure 98.8 degrees 85/minute 16/minute 120/80 Weight 62.1 kg Ronn Cason APRN.CNP 02/11/2018 5:15 PM Signed CC: Nga Elizondo is a 42 year old female who presents for weight loss medication follow up. HPI Currently taking Adipex. Starting Month 2 of 2 Denies: abdominal pain, nausea, vomiting, diarrhea, fevers, constipation, headache, change in urination, lightheadedness, weakness, numbness or tingling to arms or legs, edema, palpitations, sleep disturbances, impairment of concentration/attention, difficulty with memory, speech or language problems (particularly word-finding difficulties). Reports: Dry mouth, but drinks more water or chews gum. Noted some initial constipation, but seems to have resolved. If DM any hypo/hyperglycemiaNot applicable DIET Serving of fruits:1-2 Servings of vegetables:1-2 Servings of protein: 2-3 Fluid intake:Coffee/tea: 1 glasses per day Water: 5-6 glasses per day Do you Skip meals:YES Which meals do you tend to skip? Breakfast Eating away from home:YES 3-4 times a week Nutrition consult placed patient has been participating in the [facility] and seeing dietitian previously Exercise routine: YES Program: Moderate regular exercise program walking at least 1 mile a day and 30258 step goal Frequency: 7 times per day Weight/BMI Last 1 Encounter Wt Readings: Date: Wt: 01/12/2018 63.5 kg (140 lb) BMI 30.71 kg/(m2) Last visit Wt: 63.5 kg (140 lb) BMI: 31.39 kg/(m2) Weight change since last visit: How much: 3 lbs, How lon month Percent of Weight Loss: 2.1% Over 1 months ROS as above, otherwise non-contributory. Reviewed PMHx, PSHx, social Hx, medications and allergies. PHYSICAL EXAM BP 120/80 Pulse 85 Temp 37.1 ?C (98.8 ?F) (Temporal Artery) Resp 16 Wt 62.1 kg (137 lb) SpO2 98% BMI 30.71 kg/m? General Appearance: well appearing, in no acute distress, alert Skin: Skin color, texture, turgor normal for age; Head: normocephalic, atraumatic Lungs: Lungs clear to auscultation. No wheezing, rhonchi, rales Heart: RRR without murmur, gallop, or rubs. No ectopy ASSESSMENT/PLAN: 1. Class 1 obesity without serious comorbidity with body mass index (BMI) of 31.0 to 31.9 in adult, unspecified obesity type - ICD9: 278.00, V85.31, ICD10: E66.9, Z68.31 - PHENTERMINE 37.5 MG CAPSULE - Continue diet consisting of counting calories and portion control. - Reduce sugary drinks of artificial juices and sodas and replace with water and low calorie Crystal Light. - Healthy Snack alternatives have been discussed and will attempt more fruits and vegetables. - encouraged 3 meals a day - Continueexercise or meaningful activity for 20 minutes at lest 3 times a day PDMP website checked and validated. All prescriptions have been APPROPRIATELY filled. No suspicious activity was identified. 02/11/2018 by Ronn Cason APRN.[employer] - reviewed SE, medication expectations, required weight loss of 5%, monthly monitoring and medication duration of use (3 months on 6 months off) Prescription instructions reviewed with patient as applicable. Potential red flag symptoms discussed with the patient. Reviewed appropriate action plan to take if red flag symptoms occur. Patient agreeable to treatment plan. Ronn Cason APRN.[employer] Referring Provider: KELSEY MILAN [[id number]] Allergies As of Date: 02/11/2018 Noted Allergy Reaction SULFA (SULFONAMIDE ANTIBIOTICS) 11/02/2008 2 - Rash Date Reviewed: 01/12/2018 Reviewed by: Rupali Estevez Ma - Fully Assessed Reason for Visit: Recheck [92] Cmt: Adipex follow up Visit Diagnosis:Class 1 obesity without serious comorbidity with body mass index (BMI) of 31.0 to 31.9 in adult, unspecified obesity type [E66.9, Z68.31] Order(s):Phentermine HCl (ADIPEX-P) 37.5 mg capsuleTake 1 capsule by mouth once daily for 30 days.Disp: 30 capsuleRfl: 0 Prescriptions as of 02/11/2018 Sig: PHENTERMINE 37.5 MG CAPSULE Take 1 capsule by mouth once * BUPROPION XL 150 MG TAB Take 1 tablet by mouth once d* HYDROCORTISONE ACETATE 25 MG * 1 Suppository by RECTAL route* Patient not taking: Reported on 12/14/2017 * MULTIVITAMIN TABLET Take one(1) tablet daily. Problem List As Of Date 02/11/2018 Noted Resolved Cervicalgia [M54.2] INVALID FOR* Other symptoms involving head and neck [R68.89] INVALID FOR* Backache, unspecified [M54.9] INVALID FOR* Pain in joint, pelvic region and thigh [M25.559]INVALID FOR* Enlarged uterus [N85.2] INVALID FOR* Prescriptions ordered this encounter Disp Refills Start End PHENTERMINE 37.5 MG CAPSULE 30 c* 0 02/11/2018 03/13/2018 Class: Print RX Route: ORAL Sig: Take 1 capsule by mouth once daily for 30 days. Medications Discontinued During This Encounter Phentermine HCl (ADIPEX-P) 37.5 mg c* 30 c* 0 01/12/2018 02/11/2018 Class: Print RX Route: ORAL Sig: Take 1 capsule by mouth once daily for 30 days. Disc: Reason for discontinue is not on file. Disposition: Return in about 1 month (around 03/14/2018). Follow-up and Disposition History Recorded Encounter Status:Closed by RONN CASON CNP on 02/11/18 PROGRESS Observed: 01/12/2018 Status: COMPLETED Source: [facility] [facility] HNO ID: [id number] Author: Kelsey Milan Service: (none) Author Type: Physician Type: Progress Notes Filed: 01/12/2018 8:06 PM Note Text: Reason for Visit Patient presents with: Recheck: Medication review Nga Elizondo is a 42 year old female who presents here today for Above Complaints.. Health Maintenance There are no preventive care reminders to display for this patient. HPI She has been trying hard to loose weight, was exercising regularly , stopped it as she did not loose any weight. She has cut back a lot on pastries and bread etc, she also had cucumbers onions etc. Last night she made tacos, and the flour tortillas, she has a protein special k. She has been working with the supervising chef recently to loose weight etc. No problem-specific Assessment AND Plan notes found for this encounter. PAST MEDICAL HISTORY Diagnosis Date - NEGATIVE MEDICAL HISTORY PAST SURGICAL HISTORY Procedure Laterality Date - ANESTH, SECTION 04/29/2005 - PAST SURGICAL HISTORY OF wisdom teeth extract FAMILY HISTORY Problem Relation Age of Onset - Thyroid Mother hypothyroidism - Prostate Cancer Father - Diabetes Maternal Grandmother - Headache Paternal Grandmother - Colon Cancer Paternal Grandfather Social History Substance Use Topics - Smoking status: Never Smoker - Smokeless tobacco: Never Used - Alcohol use Yes Comment: rare Past medical history, appointments, medications, allergies reviewed. Pertinent Lab/Diagnostic Studies are reviewed and discussed today Current Outpatient Prescriptions: - hydrocortisone (ANUSOL-HC) 25 mg suppository - buPROPion XL (WELLBUTRIN XL) 150 mg 24 hr tablet - multivitamin (DAILY MULTI-VITAMIN) ORAL tablet Review of Systems CONSTITUTIONAL: No fevers, chills night sweats, unintended weight loss CARDIOVASCULAR: No chest pain, dyspnea, palpitations, orthopnea, PND, ankle edema. PULM: No dyspnea, unexplained cough. GI: No dysphagia/odynophagia, problematic reflux, constipation, diarrhea, changes in stool habits, hematochezia, melena. : No new urinary complaints, including dysuria, gross hematuria or pyuria. NEURO: No new balance problems, peripheral weakness/paresthesias or numbness of concern. Physical Exam BP 108/72 Pulse 85 Resp 16 Wt 63.5 kg (140 lb) SpO2 97% BMI 31.39 kg/m? General appearance: Well appearing, alert, in no acute distress, well nourished. Skin: Skin color, texture, turgor normal, no suspicious rashes or lesions Head: Normocephalic, no masses, lesions, tenderness or abnormalities Eyes: Anicteric sclera. Pupils are equally round and reactive to light. Extraocular movements are intact. Lungs: Lungs clear to auscultation. No wheezing, rhonchi, rales Heart: RRR without murmur, gallop, or rubs. Extremities: No deformities, edema, skin discoloration, clubbing or cyanosis. Good capillary refill. ASSESSMENT/PLAN: 1. Depression with anxiety - ICD9: 300.4, ICD10: F41.8 (primary diagnosis) She did very well with the wellbutrin adding adipex to her regimen - BUPROPION XL 150 MG TAB 2. Class 1 obesity without serious comorbidity with body mass index (BMI) of 31.0 to 31.9 in adult, unspecified obesity type - ICD9: 278.00, V85.31, ICD10: E66.9, Z68.31 Discussed Contraindications, went over each one and over side effects. tolerance, continuity of medication, controlled medication so cannot be replaced if stolen or if lost. Advised exercising along with this will really help the patient reach her goal of loosing weight. Short term use of this med was discussed. Negative for all the following :Hypersensitivity or idiosyncrasy to phentermine or other sympathomimetic amines or any component of the formulation; history of cardiovascular disease (arrhythmias, congestive heart failure, coronary artery disease, stroke, uncontrolled hypertension); hyperthyroidism, glaucoma, agitated states, history of drug abuse; use during or within 14 days following MAO inhibitor therapy; , breast-feeding - PHENTERMINE 37.5 MG CAPSULE KELSEY MILAN MD CNOV Observed: 01/12/2018 Status: COMPLETED Source: [place] 6:20 PM [facility] REPOSITORY Office Visit ([facility]) NGA ELIZONDO ([id number]) 1975 F Date Time Provider Department 01/12/18 6:20 PM KELSEY MILAN During your visit today, we recorded the following information about you: Pulse Respiration Blood pressure Weight 85/minute 16/minute 108/72 63.5 kg KELSEY MILAN MD 01/12/2018 8:06 PM Signed Reason for Visit Patient presents with: Recheck: Medication review Nga Elizondo is a 42 year old female who presents here today for Above Complaints.. Health Maintenance There are no preventive care reminders to display for this patient. HPI She has been trying hard to loose weight, was exercising regularly , stopped it as she did not loose any weight. She has cut back a lot on pastries and bread etc, she also had cucumbers onions etc. Last night she made tacos, and the flour tortillas, she has a protein special k. She has been working with the supervising chef recently to loose weight etc. No problem-specific Assessment AND Plan notes found for this encounter. PAST MEDICAL HISTORY Diagnosis Date - NEGATIVE MEDICAL HISTORY PAST SURGICAL HISTORY Procedure Laterality Date - ANESTH, SECTION 04/29/2005 - PAST SURGICAL HISTORY OF wisdom teeth extract FAMILY HISTORY Problem Relation Age of Onset - Thyroid Mother hypothyroidism - Prostate Cancer Father - Diabetes Maternal Grandmother - Headache Paternal Grandmother - Colon Cancer Paternal Grandfather Social History Substance Use Topics - Smoking status: Never Smoker - Smokeless tobacco: Never Used - Alcohol use Yes Comment: rare Past medical history, appointments, medications, allergies reviewed. Pertinent Lab/Diagnostic Studies are reviewed and discussed today Current Outpatient Prescriptions: - hydrocortisone (ANUSOL-HC) 25 mg suppository - buPROPion XL (WELLBUTRIN XL) 150 mg 24 hr tablet - multivitamin (DAILY MULTI-VITAMIN) ORAL tablet Review of Systems CONSTITUTIONAL: No fevers, chills night sweats, unintended weight loss CARDIOVASCULAR: No chest pain, dyspnea, palpitations, orthopnea, PND, ankle edema. PULM: No dyspnea, unexplained cough. GI: No dysphagia/odynophagia, problematic reflux, constipation, diarrhea, changes in stool habits, hematochezia, melena. : No new urinary complaints, including dysuria, gross hematuria or pyuria. NEURO: No new balance problems, peripheral weakness/paresthesias or numbness of concern. Physical Exam BP 108/72 Pulse 85 Resp 16 Wt 63.5 kg (140 lb) SpO2 97% BMI 31.39 kg/m? General appearance: Well appearing, alert, in no acute distress, well nourished. Skin: Skin color, texture, turgor normal, no suspicious rashes or lesions Head: Normocephalic, no masses, lesions, tenderness or abnormalities Eyes: Anicteric sclera. Pupils are equally round and reactive to light. Extraocular movements are intact. Lungs: Lungs clear to auscultation. No wheezing, rhonchi, rales Heart: RRR without murmur, gallop, or rubs. Extremities: No deformities, edema, skin discoloration, clubbing or cyanosis. Good capillary refill. ASSESSMENT/PLAN: 1. Depression with anxiety - ICD9: 300.4, ICD10: F41.8 (primary diagnosis) She did very well with the wellbutrin adding adipex to her regimen - BUPROPION XL 150 MG TAB 2. Class 1 obesity without serious comorbidity with body mass index (BMI) of 31.0 to 31.9 in adult, unspecified obesity type - ICD9: 278.00, V85.31, ICD10: E66.9, Z68.31 Discussed Contraindications, went over each one and over side effects. tolerance, continuity of medication, controlled medication so cannot be replaced if stolen or if lost. Advised exercising along with this will really help the patient reach her goal of loosing weight. Short term use of this med was discussed. Negative for all the following :Hypersensitivity or idiosyncrasy to phentermine or other sympathomimetic amines or any component of the formulation; history of cardiovascular disease (arrhythmias, congestive heart failure, coronary artery disease, stroke, uncontrolled hypertension); hyperthyroidism, glaucoma, agitated states, history of drug abuse; use during or within 14 days following MAO inhibitor therapy; , breast-feeding - PHENTERMINE 37.5 MG CAPSULE KELSEY MILAN MD Referring Provider: SELF [[id number]] Allergies As of Date: 01/12/2018 Noted Allergy Reaction SULFA (SULFONAMIDE ANTIBIOTICS) 11/02/2008 2 - Rash Date Reviewed: 01/12/2018 Reviewed by: Rupali Estevez Ma - Fully Assessed Reason for Visit: Recheck [92] Cmt: Medication review Primary Visit Diagnosis:Depression with anxiety [F41.8] Other Visit Diagnosis:Class 1 obesity without serious comorbidity with body mass index (BMI) of 31.0 to 31.9 in adult, unspecified obesity type [E66.9, Z68.31] Order(s):buPROPion XL (WELLBUTRIN XL) 150 mg 24 hr tabletTake 1 tablet by mouth once daily.Disp: 30 tabletRfl: 2 Phentermine HCl (ADIPEX-P) 37.5 mg capsuleTake 1 capsule by mouth once daily for 30 days.Disp: 30 capsuleRfl: 0 Prescriptions as of 01/12/2018 Sig: BUPROPION XL 150 MG TAB Take 1 tablet by mouth once d* PHENTERMINE 37.5 MG CAPSULE Take 1 capsule by mouth once * HYDROCORTISONE ACETATE 25 MG * 1 Suppository by RECTAL route* Patient not taking: Reported on 12/14/2017 * MULTIVITAMIN TABLET Take one(1) tablet daily. Problem List As Of Date 01/12/2018 Noted Resolved Cervicalgia [M54.2] INVALID FOR* Other symptoms involving head and neck [R68.89] INVALID FOR* Backache, unspecified [M54.9] INVALID FOR* Pain in joint, pelvic region and thigh [M25.559]INVALID FOR* Enlarged uterus [N85.2] INVALID FOR* Prescriptions ordered this encounter Disp Refills Start End BUPROPION XL 150 MG TAB 30 t* 2 01/12/2018 Route: ORAL Sig: Take 1 tablet by mouth once daily. PHENTERMINE 37.5 MG CAPSULE 30 c* 0 01/12/2018 02/11/2018 Class: Print RX Route: ORAL Sig: Take 1 capsule by mouth once daily for 30 days. Medications Discontinued During This Encounter buPROPion XL (WELLBUTRIN XL) 150 mg * 30 t* 2 11/09/2017 01/12/2018 Route: ORAL Sig: Take 1 tablet by mouth once daily. Disc: Reason for discontinue is not on file. Encounter Status:Closed by KELSEY MILAN MD on 01/12/18 Observed: 12/14/2017 Status: F Source: [place] URINE CULTURE 6:48 PM [facility] REPOSITORY Sp. Request/Comment: - Specimen received in preservative Culture Result - >=100,000 CFU/ml Escherichia coli --> ABNORMAL ALERT ORGANISM: Escherichia coli METHOD: Minimum inhibitory concentration(Vitek) Antibiotic Interp PEPE Status Ampicillin SUSCEPTIBLE 4 F Gentamicin SUSCEPTIBLE <=1 F Trimeth sulfameth SUSCEPTIBLE <=20 F Cefazolin SUSCEPTIBLE <=4 F CLSI breakpoints for therapy of uncomplicated UTI's due to E.coli, K.pneumoniae, and P.mirabilis were applied and may be used to predict the activity of oral agents(cefaclor, cefdinir, cefpodoxime, cefp rozil, cefuroxime, cephalexin, loracarbef). Ciprofloxacin SUSCEPTIBLE <=0.25 F Nitrofurantoin SUSCEPTIBLE <=16 F Cefepime SUSCEPTIBLE <=1 F Piperacillin/Tazobac SUSCEPTIBLE <=4 F Ampicillin Sulbact SUSCEPTIBLE <=2 F Ceftriaxone SUSCEPTIBLE <=1 F Meropenem SUSCEPTIBLE <=0.25 F Ertapenem SUSCEPTIBLE <=0.5 F Performed By: #### URCUL #### [facility] [address] [place], [place] [address] PROGRESS Observed: 12/14/2017 Status: COMPLETED Source: [place] 6:42 PM [facility] RE[facility] HNO ID: [id number] Author: Jeremy ([employer]uring [employer] Operator) Rosalee Service: (none) Author Type: Nurse Practitioner Type: Progress Notes Filed: 12/14/2017 7:08 PM Note Text: Subjective HPI Nga Elizondo is a 42 year old female who presents with dysuria and hematuria, she noticed this today, and also noticed a few days ago some pain in her pelvic area. She denies fever or back pain. No N/V/D. Review of Systems Constitutional: Negative. Gastrointestinal: Positive for abdominal pain (suprapubic). Negative for nausea and vomiting. Genitourinary: Positive for dysuria and hematuria. Musculoskeletal: Negative for back pain. BP 104/58 Pulse 84 Temp 37.1 ?C (98.7 ?F) Resp 18 Wt 64.4 kg (142 lb) BMI 31.84 kg/m? PAST MEDICAL HISTORY Diagnosis Date - NEGATIVE MEDICAL HISTORY PAST SURGICAL HISTORY Procedure Laterality Date - ANESTH, SECTION 04/29/2005 - PAST SURGICAL HISTORY OF wisdom teeth extract ALLERGIES Sulfa (Sulfonamide Antibiotics) MEDICATIONS buPROPion XL (WELLBUTRIN XL) 150 mg 24 hr tablet Take 1 tablet by mouth once daily. multivitamin (DAILY MULTI-VITAMIN) ORAL tablet Take one(1) tablet daily. hydrocortisone (ANUSOL-HC) 25 mg suppository 1 Suppository by RECTAL route twice daily as needed. FAMILY HISTORY Problem Relation Age of Onset - Thyroid Mother hypothyroidism - Prostate Cancer Father - Diabetes Maternal Grandmother - Headache Paternal Grandmother - Colon Cancer Paternal Grandfather Social History Substance Use Topics - Smoking status: Never Smoker - Smokeless tobacco: Never Used - Alcohol use Yes Comment: rare Objective Physical Exam Constitutional: She is well-developed, well-nourished, and in no distress. Cardiovascular: Normal rate, regular rhythm and normal heart sounds. Pulmonary/Chest: Effort normal and breath sounds normal. Abdominal: Soft. She exhibits no distension and no mass. There is no hepatosplenomegaly. There is tenderness. There is no guarding and no CVA tenderness. Neurological: She is alert. Skin: Skin is warm and dry. Nursing note and vitals reviewed. ASSESSMENT/PLAN: 1. Acute cystitis with hematuria - ICD9: 595.0, ICD10: N30.01 (primary diagnosis) - CEPHALEXIN 500 MG CAPSULE 2. Burning with urination - ICD9: 788.1, ICD10: R30.0 acute - UA positive for omaira esterase, hematuria and proteinuria - Send urine for culture - Begin treatment with Keflex for 7 days - Patient education for prevention given - UA DIP B/O - URINE CULTURE 3. Hematuria, unspecified type - ICD9: 599.70, ICD10: R31.9 - UA DIP B/O - URINE CULTURE - Follow-up with your PCP in 3-5 days if symptoms have not improved or sooner if symptoms worsen - Discussed red flags and need for immediate medical evaluation if any occur. - Discussed supportive care treatment with fluids, rest and analgesia. - Discussed expected course of illness Jeremy Turk APRN.NGOZI THAKUROV Observed: 12/14/2017 Status: COMPLETED Source: [place] 6:15 PM [facility] ([id number]) 1975 F Date Time Provider Department 12/14/17 6:15 PM JEREMY TURK (NGOZI) [facility] During your visit today, we recorded the following information about you: Temperature Pulse Respiration Blood pressure 98.7 degrees 84/minute 18/minute 104/58 Weight 64.4 kg Jeremy Turk APRN.CNP 12/14/2017 7:08 PM Signed Subjective HPI Nga Elizondo is a 42 year old female who presents with dysuria and hematuria, she noticed this today, and also noticed a few days ago some pain in her pelvic area. She denies fever or back pain. No N/V/D. Review of Systems Constitutional: Negative. Gastrointestinal: Positive for abdominal pain (suprapubic). Negative for nausea and vomiting. Genitourinary: Positive for dysuria and hematuria. Musculoskeletal: Negative for back pain. BP 104/58 Pulse 84 Temp 37.1 ?C (98.7 ?F) Resp 18 Wt 64.4 kg (142 lb) BMI 31.84 kg/m? PAST MEDICAL HISTORY Diagnosis Date - NEGATIVE MEDICAL HISTORY PAST SURGICAL HISTORY Procedure Laterality Date - ANESTH, SECTION 04/29/2005 - PAST SURGICAL HISTORY OF wisdom teeth extract ALLERGIES Sulfa (Sulfonamide Antibiotics) MEDICATIONS buPROPion XL (WELLBUTRIN XL) 150 mg 24 hr tablet Take 1 tablet by mouth once daily. multivitamin (DAILY MULTI-VITAMIN) ORAL tablet Take one(1) tablet daily. hydrocortisone (ANUSOL-HC) 25 mg suppository 1 Suppository by RECTAL route twice daily as needed. FAMILY HISTORY Problem Relation Age of Onset - Thyroid Mother hypothyroidism - Prostate Cancer Father - Diabetes Maternal Grandmother - Headache Paternal Grandmother - Colon Cancer Paternal Grandfather Social History Substance Use Topics - Smoking status: Never Smoker - Smokeless tobacco: Never Used - Alcohol use Yes Comment: rare Objective Physical Exam Constitutional: She is well-developed, well-nourished, and in no distress. Cardiovascular: Normal rate, regular rhythm and normal heart sounds. Pulmonary/Chest: Effort normal and breath sounds normal. Abdominal: Soft. She exhibits no distension and no mass. There is no hepatosplenomegaly. There is tenderness. There is no guarding and no CVA tenderness. Neurological: She is alert. Skin: Skin is warm and dry. Nursing note and vitals reviewed. ASSESSMENT/PLAN: 1. Acute cystitis with hematuria - ICD9: 595.0, ICD10: N30.01 (primary diagnosis) - CEPHALEXIN 500 MG CAPSULE 2. Burning with urination - ICD9: 788.1, ICD10: R30.0 acute - UA positive for omaira esterase, hematuria and proteinuria - Send urine for culture - Begin treatment with Keflex for 7 days - Patient education for prevention given - UA DIP B/O - URINE CULTURE 3. Hematuria, unspecified type - ICD9: 599.70, ICD10: R31.9 - UA DIP B/O - URINE CULTURE - Follow-up with your PCP in 3-5 days if symptoms have not improved or sooner if symptoms worsen - Discussed red flags and need for immediate medical evaluation if any occur. - Discussed supportive care treatment with fluids, rest and analgesia. - Discussed expected course of illness ISABELLE Hu APRN.CNP 12/14/2017 6:49 PM Signed [facility] PATIENT INFO BLADDER INFECTION OVERVIEW Bladder infections are one of the most common infections, causing symptoms of burning with urination and needing to urinate frequently. A bladder infection is a type of urinary tract infection (UTI). Bladder infections are more common is women than men. Most women have an uncomplicated bladder infection that is easily treated with a short course of antibiotics. In men, bladder infections may also affect the prostate gland, and a longer course of treatment may be needed. BLADDER INFECTION CAUSES The urinary tract includes the kidneys (which filter urine), ureters (the tube that carries urine from the kidneys to the bladder), the bladder (which stores urine), and urethra (the tube that carries urine out of the bladder). Bacteria do not normally live in these areas. However, bacteria normally live close to the urethra in women and men who are not circumcised. Bladder infections occur when bacteria travel up the urethra into the bladder. Factors that increase the risk of developing a bladder infection include: ? Vaginal sex ? Use of spermicides ? History of past bladder infections ? Diabetes In men, not being circumcised or having anal sex increase the risk of bladder infections. BLADDER INFECTION SYMPTOMS The typical symptoms of a bladder infection include: ? Pain or burning when urinating ? Frequent need to urinate ? Urgent need to urinate ? Blood in the urine Fever, back pain, nausea, or vomiting are not common symptoms of a bladder infection, but can occur in people with a kidney infection (pyelonephritis). If you have these symptoms, you should call your doctor or nurse immediately. Is it a bladder infection or something else? ? Burning with urination can also occur in people with vaginitis (eg, yeast infection) or urethritis (inflammation of the urethra). For this reason, it is important to call your healthcare provider before assuming you have a bladder infection. BLADDER INFECTION DIAGNOSIS Simple bladder infections are usually diagnosed based upon your symptoms alone. However, most patients, especially those who have bladder infection symptoms for the first time, should see a healthcare provider for urine testing. Urine culture ? A urine culture is a test that uses a sample of urine to try and grow bacteria in a laboratory. It usually requires about 48 hours to get results. However, a urine culture is not always required to diagnose a bladder infection. Urine culture is often recommended if: ? You have never had a bladder infection before ? You have symptoms that are not typical for bladder infection ? You have had resistant bladder infections before ? You have frequent bladder infections ? You do not begin to feel better within 24 to 48 hours after starting antibiotics ? You are BLADDER INFECTION TREATMENT Bladder infection ? In young, healthy adolescents and adults with a bladder infection, the usual treatment includes a three to seven day course of antibiotics. The typical drugs chosen are: trimethoprim-sulfamethoxazole (Bactrim?), nitrofurantoin (Macrobid?), ciprofloxacin (Cipro?) or levofloxacin (Levaquin?). In men, the infection may involve your prostate gland and treatment is usually given for at least 7 days. Your symptoms should begin to resolve within one day after starting treatment. It is important to take the full course of antibiotics to completely eliminate the infection. If your symptoms persist for more than two or three days after starting treatment, call your healthcare provider. If needed, you can take a prescription medication that numbs the bladder and urethra (phenazopyridine [Pyridium?]) to reduce the burning pain of some UTIs. A similar medication is available without a prescription (eg, Uristat). Both medications change the color of the urine (usually blue or orange) and can interfere with laboratory testing. You should not take these medications for more than 48 hours due to the risk of side effects. These medications do not treat the infection and must be taken along with an antibiotic. Some providers recommend drinking more fluids while treating bladder infections to help flush bacteria from the bladder. Others believe that drinking more fluids may dilute the antibiotic in the bladder and make the medication less effective. No studies have been performed to address this issue. There are also no good studies on the effectiveness of cranberry juice for treating a bladder infection; we do not recommend using cranberry juice to treat bladder infections. Follow-up care ? Follow-up testing is not needed in healthy, young men or women with a bladder infection if symptoms resolve. women are usually asked to have a repeat urine culture one to two weeks after treatment has ended to make sure the bacteria are no longer in the urine. RECURRENT BLADDER INFECTIONS Bladder infections versus other causes ? Some adults, especially women, develop bladder infections frequently. In this case, it is important to confirm that your symptoms (eg, pain or burning, frequency, and urgency) are caused by a bladder infection. Symptoms are usually similar from one infection to another. The best way to confirm an infection is to have a urine culture. If your urine culture is negative for infection, other causes of pain, burning, and frequency should be investigated. There is no reason to take antibiotics if your urine culture is negative. Need for further testing ? If you continue to develop bladder infections, you may require further testing. If you continue to notice blood in your urine after your bladder infection has cleared, you should have further testing. Preventing recurrent UTIs ? Women with recurrent urinary tract infections may be advised to take steps to prevent bladder infections, including one or more of the following: Changes in control ? Women who develop frequent bladder infections and use spermicides, particularly those who also use a diaphragm, may be encouraged to use an alternate method of control. Cranberry products ? Taking cranberry juice or cranberry tablets has been promoted as one way to help prevent frequent bladder infections. However, this has not been proven. Drinking more fluid and urinating after intercourse ? Although studies have not proven that drinking more fluids or urinating soon after intercourse can prevent infection, some healthcare providers recommend these measures since they are not harmful. Drinking more fluid may help to wash out bacteria that enter the bladder. Postmenopausal women ? Postmenopausal women who develop recurrent bladder infections may benefit from using vaginal estrogen. Vaginal estrogen is available in a flexible ring that is worn in the vagina for three months (eg, Estring?), a small tablet (Vagifem?), or a cream (eg, Premarin? or Estrace?). Vaginal estrogen is discussed in more detail in a separate topic review. Antibiotics ? A preventive antibiotic treatment may be recommended if you repeatedly develop bladder infections and have not responded to other preventive measures. Antibiotics are highly effective in preventing recurrent bladder infections and can be taken in several different ways. ? Preventive antibiotic ? You can take a low dose of an antibiotic once per day or three times per week for six months to several years. ? Antibiotics following intercourse ? In women who develop urinary tract infections after sex, taking a single low dose antibiotic after intercourse can help to prevent bladder infections. ? Self-treatment ? A plan to begin antibiotics at the first sign of a bladder infection may be recommended in some situations. Before starting this regimen, it is important that you have had testing (urine cultures) to confirm that your symptoms are caused by a bladder infection; some people have symptoms of a bladder infection but do not actually have an infection. Referring Provider: SELF [[id number]] Allergies As of Date: 12/14/2017 Noted Allergy Reaction SULFA (SULFONAMIDE ANTIBIOTICS) 11/02/2008 2 - Rash Date Reviewed: 12/14/2017 Reviewed by: Jeremy ([facility]) [place]e - Fully Assessed Reason for Visit: Urinary Problem [252] Cmt: x 1 hour burning with urination, groin pain and blood in urine Primary Visit Diagnosis:Acute cystitis with hematuria [N30.01] Other Visit Diagnoses:Burning with urination [R30.0] Hematuria, unspecified type [R31.9] Order(s):UA DIP B/O [[id number]] Order #: [id number] URINE CULTURE [SQURCUL] Order #: [id number] cephALEXin (KEFLEX) 500 mg capsuleTake 1 capsule by mouth twice daily for 7 days.Disp: 14 capsuleRfl: 0 Prescriptions as of 12/14/2017 Sig: BUPROPION XL 150 MG TAB Take 1 tablet by mouth once d* * MULTIVITAMIN TABLET Take one(1) tablet daily. CEPHALEXIN 500 MG CAPSULE Take 1 capsule by mouth twice* HYDROCORTISONE ACETATE 25 MG * 1 Suppository by RECTAL route* Patient not taking: Reported on 12/14/2017 Problem List As Of Date 12/14/2017 Noted Resolved Cervicalgia [M54.2] INVALID FOR* Other symptoms involving head and neck [R68.89] INVALID FOR* Backache, unspecified [M54.9] INVALID FOR* Pain in joint, pelvic region and thigh [M25.559]INVALID FOR* Enlarged uterus [N85.2] INVALID FOR* Other instructions from your clinician: EXPRESS CARE PATIENT INFO BLADDER INFECTION OVERVIEW Bladder infections are one of the most common infections, causing symptoms of burning with urination and needing to urinate frequently. A bladder infection is a type of urinary tract infection (UTI). Bladder infections are more common is women than men. Most women have an uncomplicated bladder infection that is easily treated with a short course of antibiotics. In men, bladder infections may also affect the prostate gland, and a longer course of treatment may be needed. BLADDER INFECTION CAUSES The urinary tract includes the kidneys (which filter urine), ureters (the tube that carries urine from the kidneys to the bladder), the bladder (which stores urine), and urethra (the tube that carries urine out of the bladder). Bacteria do not normally live in these areas. However, bacteria normally live close to the urethra in women and men who are not circumcised. Bladder infections occur when bacteria travel up the urethra into the bladder. Factors that increase the risk of developing a bladder infection include: ? Vaginal sex ? Use of spermicides ? History of past bladder infections ? Diabetes In men, not being circumcised or having anal sex increase the risk of bladder infections. BLADDER INFECTION SYMPTOMS The typical symptoms of a bladder infection include: ? Pain or burning when urinating ? Frequent need to urinate ? Urgent need to urinate ? Blood in the urine Fever, back pain, nausea, or vomiting are not common symptoms of a bladder infection, but can occur in people with a kidney infection (pyelonephritis). If you have these symptoms, you should call your doctor or nurse immediately. Is it a bladder infection or something else? ? Burning with urination can also occur in people with vaginitis (eg, yeast infection) or urethritis (inflammation of the urethra). For this reason, it is important to call your healthcare provider before assuming you have a bladder infection. BLADDER INFECTION DIAGNOSIS Simple bladder infections are usually diagnosed based upon your symptoms alone. However, most patients, especially those who have bladder infection symptoms for the first time, should see a healthcare provider for urine testing. Urine culture ? A urine culture is a test that uses a sample of urine to try and grow bacteria in a laboratory. It usually requires about 48 hours to get results. However, a urine culture is not always required to diagnose a bladder infection. Urine culture is often recommended if: ? You have never had a bladder infection before ? You have symptoms that are not typical for bladder infection ? You have had resistant bladder infections before ? You have frequent bladder infections ? You do not begin to feel better within 24 to 48 hours after starting antibiotics ? You are BLADDER INFECTION TREATMENT Bladder infection ? In young, healthy adolescents and adults with a bladder infection, the usual treatment includes a three to seven day course of antibiotics. The typical drugs chosen are: trimethoprim-sulfamethoxazole (Bactrim?), nitrofurantoin (Macrobid?), ciprofloxacin (Cipro?) or levofloxacin (Levaquin?). In men, the infection may involve your prostate gland and treatment is usually given for at least 7 days. Your symptoms should begin to resolve within one day after starting treatment. It is important to take the full course of antibiotics to completely eliminate the infection. If your symptoms persist for more than two or three days after starting treatment, call your healthcare provider. If needed, you can take a prescription medication that numbs the bladder and urethra (phenazopyridine [Pyridium?]) to reduce the burning pain of some UTIs. A similar medication is available without a prescription (eg, Uristat). Both medications change the color of the urine (usually blue or orange) and can interfere with laboratory testing. You should not take these medications for more than 48 hours due to the risk of side effects. These medications do not treat the infection and must be taken along with an antibiotic. Some providers recommend drinking more fluids while treating bladder infections to help flush bacteria from the bladder. Others believe that drinking more fluids may dilute the antibiotic in the bladder and make the medication less effective. No studies have been performed to address this issue. There are also no good studies on the effectiveness of cranberry juice for treating a bladder infection; we do not recommend using cranberry juice to treat bladder infections. Follow-up care ? Follow-up testing is not needed in healthy, young men or women with a bladder infection if symptoms resolve. women are usually asked to have a repeat urine culture one to two weeks after treatment has ended to make sure the bacteria are no longer in the urine. RECURRENT BLADDER INFECTIONS Bladder infections versus other causes ? Some adults, especially women, develop bladder infections frequently. In this case, it is important to confirm that your symptoms (eg, pain or burning, frequency, and urgency) are caused by a bladder infection. Symptoms are usually similar from one infection to another. The best way to confirm an infection is to have a urine culture. If your urine culture is negative for infection, other causes of pain, burning, and frequency should be investigated. There is no reason to take antibiotics if your urine culture is negative. Need for further testing ? If you continue to develop bladder infections, you may require further testing. If you continue to notice blood in your urine after your bladder infection has cleared, you should have further testing. Preventing recurrent UTIs ? Women with recurrent urinary tract infections may be advised to take steps to prevent bladder infections, including one or more of the following: Changes in control ? Women who develop frequent bladder infections and use spermicides, particularly those who also use a diaphragm, may be encouraged to use an alternate method of control. Cranberry products ? Taking cranberry juice or cranberry tablets has been promoted as one way to help prevent frequent bladder infections. However, this has not been proven. Drinking more fluid and urinating after intercourse ? Although studies have not proven that drinking more fluids or urinating soon after intercourse can prevent infection, some healthcare providers recommend these measures since they are not harmful. Drinking more fluid may help to wash out bacteria that enter the bladder. Postmenopausal women ? Postmenopausal women who develop recurrent bladder infections may benefit from using vaginal estrogen. Vaginal estrogen is available in a flexible ring that is worn in the vagina for three months (eg, Estring?), a small tablet (Vagifem?), or a cream (eg, Premarin? or Estrace?). Vaginal estrogen is discussed in more detail in a separate topic review. Antibiotics ? A preventive antibiotic treatment may be recommended if you repeatedly develop bladder infections and have not responded to other preventive measures. Antibiotics are highly effective in preventing recurrent bladder infections and can be taken in several different ways. ? Preventive antibiotic ? You can take a low dose of an antibiotic once per day or three times per week for six months to several years. ? Antibiotics following intercourse ? In women who develop urinary tract infections after sex, taking a single low dose antibiotic after intercourse can help to prevent bladder infections. ? Self-treatment ? A plan to begin antibiotics at the first sign of a bladder infection may be recommended in some situations. Before starting this regimen, it is important that you have had testing (urine cultures) to confirm that your symptoms are caused by a bladder infection; some people have symptoms of a bladder infection but do not actually have an infection. Prescriptions ordered this encounter Disp Refills Start End CEPHALEXIN 500 MG CAPSULE 14 c* 0 12/14/2017 12/21/2017 Route: ORAL Sig: Take 1 capsule by mouth twice daily for 7 days. Encounter Status:Closed by JEREMY TURK on 12/14/17 CNCO Observed: 11/12/2017 Status: COMPLETED Source: [facility] 12:00 AM [facility] REPOSITORY Letter Text Nga Elizondo [address] [place] [address] 11/12/2017 [facility] #: [id number] Dear , Due to a change in the provider's schedule it has been necessary to reschedule your Appointment. Your original appointment was scheduled for January 03, 2018 at 8AM with Kelsey Milan M.D. Your new appointment is now scheduled on January 03, 2018 at 8 AM with Ronn Cason CNP. If this new appointment is not convenient for you, please contact our office at [phone]. Thank you for choosing the [facility] as your Healthcare Provider . Sincerely, Internal Medicine Appointment Office CBC AND DIFFERENTIAL Collected: 11/09/2017 Status: F Source: [facility] 10:52 AM [facility] REPOSITORY TYPE CODE TESTS RESULT OUT OF REFERENCE UNITS RANGE LAB WBC 3.70-11.00 k/uL WBC 6.47 LAB RBC 3.90-5.20 m/uL RBC 4.50 LAB HGB 11.5-15.5 g/dL Hemoglobin 13.2 LAB HCT 36.0-46.0 % Hematocrit 41.9 LAB MCV 80.0-100.0 fL MCV 93.1 LAB MCH 26.0-34.0 pG MCH 29.3 LAB MCHC 30.5-36.0 g/dL MCHC 31.5 LAB RDWCV 11.5-15.0 % RDW-CV 13.0 LAB PLTCT 150-400 k/uL Platelet Count 304 LAB MPV 9.0-12.7 fL MPV 11.5 LAB ANEUT % Neut% 54.4 LAB AANEUT 1.45-7.50 k/uL Abs Neut 3.51 LAB ALYMP % Lymph% 32.5 LAB AALYMP 1.00-4.00 k/uL Abs Lymph 2.10 LAB AMONO % [place]% 9.4 LAB AAMONO <0.87 k/uL Abs [place] 0.61 LAB AEOS % Eosin% 3.2 LAB AAEOS <0.46 k/uL Abs Eosin 0.21 LAB ABASO % Baso% 0.5 LAB AABASO <0.11 k/uL Abs Baso 0.03 LAB AUNRBC 0 /100 WBC NRBCs 0.0 LAB ABNRBC <0.01 k/uL Absolute nRBC <0.01 LAB DTYP DTYPE Auto Diff Performed By: #### CBCDIF, CMP, LIPB, FT4, T3, TSH #### [facility] [address] [place], [place] [address] COMP METABOLIC PANEL Collected: 11/09/2017 Status: F Source: [facility] 10:52 AM [facility] REPOSITORY TYPE CODE TESTS RESULT OUT OF REFERENCE UNITS RANGE LAB TP 6.3-8.0 g/dL Protein, Total 7.8 LAB ALB 3.9-4.9 g/dL Albumin 4.3 LAB CA 8.5-10.2 mg/dL Calcium, Total 9.8 LAB TBIL 0.2-1.3 mg/dL Bilirubin, Total 0.2 LAB ALKP 32-117 U/L Alkaline Phosphatase 62 LAB AST 13-35 U/L AST 26 LAB GLU 74-99 mg/dL Glucose 74 Result Comment: The [place] Diabetes Association (ADA) provides guidance for cutoff values for fasting glucose and random glucose. The ADA defines fasting as no caloric intake for at least 8 hours. Fas ting plasma glucose results between 100 to 125 mg/dL indicate increased risk for diabetes (prediabetes). Fasting plasma glucose results greater than or equal to 126 mg/dL meet the criteria for diagnosis of diabetes. In the absence of unequivocal hyperglycemia, results should be confirmed by repeat testing. In a patient with classic symptoms of hyperglycemia or hyperglycemic crisis, random plasma glucose results greater than or equal to 200 mg/dL meet the criteria for diagnosis of diabetes. Reference: Standards of Medical Care in Diabetes 2016, [place] Diabetes Association. Diabetes Care. 2016.39(Suppl 1). LAB BUN 7-21 mg/dL BUN 21 LAB CRET 0.58-0.96 mg/dL Creatinine 0.80 LAB NA 136-144 mmol/L Sodium 139 LAB K 3.7-5.1 mmol/L Potassium 4.7 LAB CL 97-105 mmol/L Chloride 101 LAB CO2 22-30 mmol/L CO2 27 LAB AGAP 9-18 mmol/L Anion Gap 11 LAB ALT 7-38 U/L ALT 15 LAB GFRAA eGFR- Amer. >60 LAB GFRNAA . eGFR-All Other Races >60 Result Comment: eGFR (Estimated GFR) Units of measure: mL/min/1.73 meters squared eGFR is derived from the reexpressed MDRD Study equation using the following parameters: serum creatinine, age, gender and race. The creatinine assay has been calibrated to be traceable to IDMS. An eGFR <60 mL/min/1.73m2 for >3 months is consistent with chronic kidney disease. Refer to KDOQI guidelines for clinical interpretation. In patients with unstable renal function, e.g. those with acute kidney injury, the eGFR may not accurately reflect actual GFR. Performed By: #### CBCDIF, CMP, LIPB, FT4, T3, TSH #### [facility] [address] [place] [address] LIPID PANEL, BASIC Collected: 11/09/2017 Status: F Source: [facility] 10:52 AM [facility] REPOSITORY TYPE CODE TESTS RESULT OUT OF REFERENCE UNITS RANGE LAB CHOL <200 mg/dL Cholesterol 189 Result Comment: <200 mg/dL, Desirable 200-239 mg/dL, Borderline high >239 mg/dL, High LAB TRIGLY <150 mg/dL Triglyceride 145 Result Comment: <150 mg/dL, Normal 150-199 mg/dL, Borderline high 200-499 mg/dL, High >499 mg/dL, Very high LAB HDL >39 mg/dL HDL-Cholesterol 67 Result Comment: 40-59 mg/dL, Acceptable >59 mg/dL, High: Negative risk factor for coronary heart disease <40 mg/dL, Low: Positive risk factor for coronary heart disease LAB LDL <100 mg/dL LDL-Cholesterol 93 Result Comment: <100 mg/dL, Optimal 100-129 mg/dL, Near optimal/above optimal 130-159 mg/dL, Borderline high 160-189 mg/dL, High >189 mg/dL, Very high Secondary prevention optimal LDL Cholesterol levels are recommended to be < 70 mg/dL LAB NONHDL <130 mg/dL Non HDL Cholesterol 122 Result Comment: <130 mg/dL, Optimal 130-159 mg/dL, Near optimal/above optimal 160-189 mg/dL, Borderline high 190-219 mg/dL, High >219 mg/dL, Very high Secondary prevention optimal non HDL Cholesterol levels are recommended to be < 100 mg/dL LAB FT hrs Fasting Time 3 LAB VLDL <30 mg/dL VLDL Cholesterol 29 LAB TCHDL <5.10 TC:HDL Ratio 2.82 LAB LDLHDL <2.54 LDL:HDL Ratio 1.39 Result Comment: Reference: 1. National Cholesterol Education Program ATP III Guideline At-A-Glance Quick Desk Reference: National Heart, Lung, and Blood [place]. National Institutes of Health. 2001: NIH Publication No. 01-3305. 2. An International Atherosclerosis Society position paper: global recommendations for the management of dyslipidemia: executive summary, Atherosclerosis. 2014: 232(2):410-413. Performed By: #### CBCDIF, CMP, LIPB, FT4, T3, TSH #### [facility] [address] [place] [address] FREE T4 Collected: 11/09/2017 Status: F Source: [place] 10:52 AM [facility] REPOSITORY TYPE CODE TESTS RESULT OUT OF RANGE REFERENCE UNITS LAB FT4 0.9-1.7 ng/dL Low Free T4 0.8 Performed By: #### CBCDIF, CMP, LIPB, FT4, T3, TSH #### [facility] [address] [place] [address] T3 Collected: 11/09/2017 Status: F Source: [facility] 10:52 AM [facility] REPOSITORY TYPE CODE TESTS RESULT OUT OF RANGE REFERENCE UNITS LAB T3 79-165 ng/dL T3 101 Performed By: #### CBCDIF, CMP, LIPB, FT4, T3, TSH #### [facility] [address] [place], [place] [address] TSH Collected: 11/09/2017 Status: F Source: [place] 10:52 AM [facility] REPOSITORY TYPE CODE TESTS RESULT OUT OF RANGE REFERENCE UNITS LAB TSH 0.400-5.500 uU/mL TSH 3.020 Result Comment: If the patient is , TSH reference range varies by gestational period: First Trimester 0.100-2.500 uU/mL Second Trimester 0.200-3.000 uU/mL Third Trimester 0.300-3.000 uU/mL References: 1. Bishop L, Ana M, Adin EK, et al. Management of Thyroid Dysfunction during and : An Endocrine Society Clinical Practice Guideline. J Clin Endocrinol Metab, 2012:97:4277-4579. 2. Abhilash MONTE. Overview of thyroid disease in . UpToDate. 2016. Accessed on December 20, 2015. Performed By: #### CBCDIF, CMP, LIPB, FT4, T3, TSH #### [facility] [address] [place], [place] [address] PROGRESS Observed: 11/09/2017 Status: COMPLETED Source: [facility] 10:09 AM [facility] REPOSITORY HNO ID: [id number] Author: Ronn Cason ([employer]) Service: (none) Author Type: Nurse Practitioner Type: Progress Notes Filed: 11/09/2017 11:03 AM Note Text: CC: Patient presents with: Recheck HPI Nga Elizondo is a 42 year old female who presents today for follow up of laboratory results and weight management and left heel pain. Patient started the [facility] ~5 months ago, meeting with a dietitian every other week and was working out ~5 days days per week for the past 4 months. She reports she has not seen results and has been frustrated. She isn't monitoring her diet as much nor is she working out currently as she has been experiencing left heel pain the past month. She would like to discuss alternatives for weight loss and to see if she could extend her time with the [facility]. Patient reports ongoing left heel pain that radiates up to the arch of foot. Pain is intermittent can be sharp or an ache, but occurs daily. She has taken ibuprofen and attempting stretching exercises which help some. Pain improves with rest and is exacerbated by extended ambulation. Denies any recent trauma or falls. Denies any numbness, tingling or weakness to LLE. REVIEW OF SYSTEMS General: no fevers, no chills, no night sweats, no recurrent infections, no change in appetite and no significant changes in weight HEENT: no frequent or significant headaches, no changes in hearing, no visual changes, no nose bleeds, no sinus or nasal problems Respiratory: no cough, no wheezing, no shortness of breath, no hemoptysis Cardiovascular: no chest pain, no chest pressure, no palpitations and no swelling GI: No nausea, vomiting, or diarrhea Musculoskeletal: See HPI Endocrine: no fatigue, no weight gain, no weight loss, no hair loss, no dry skin, no cold intolerance, no heat intolerance, no neck pain/pressure, no polyuria, no polyphagia and no polydipsia Neurologic: No headache, weakness, numbness, tingling, neck stiffness, tremor, vertigo, dizziness, memory loss, syncope. PAST MEDICAL HISTORY Diagnosis Date - NEGATIVE MEDICAL HISTORY PAST SURGICAL HISTORY Procedure Laterality Date - ANESTH, SECTION 04/29/2005 - PAST SURGICAL HISTORY OF wisdom teeth extract ALLERGIES Sulfa (Sulfonamide Antibiotics) MEDICATIONS multivitamin (DAILY MULTI-VITAMIN) ORAL tablet Take one(1) tablet daily. FAMILY HISTORY Problem Relation Age of Onset - Thyroid Mother hypothyroidism - Prostate Cancer Father - Diabetes Maternal Grandmother - Headache Paternal Grandmother - Colon Cancer Paternal Grandfather Social History Substance Use Topics - Smoking status: Never Smoker - Smokeless tobacco: Never Used - Alcohol use Yes Comment: rare PHYSICAL EXAM BP 102/64 (BP Site: Left Arm, BP Position: Sitting, BP Cuff Size: Regular Adult) Pulse 72 Resp 18 Wt 64.4 kg (142 lb) BMI 31.84 kg/m? General Appearance: well appearing, in no acute distress, alert Skin: Skin color, texture, turgor normal for age; Lungs: Lungs clear to auscultation. No wheezing, rhonchi, rales Heart: RRR without murmur, gallop, or rubs. No ectopy Musculoskeletal: No joint swelling, deformity, or tenderness Left Lower Extremity: Ankle: Full painless ROM, no joint tenderness, edema or erythema Foot: skin intact, no edema or deformity pain over the mid-heel and inner arch with palpation. MAMMOGRAM due on 06/14/2018 DTAP,TDAP,TD(2 - Td) due on 12/25/2018 PAP EVERY 5 YEARS due on 07/20/2022 HPV EVERY 5 YEARS due on 07/20/2022 INFLUENZA Completed ASSESSMENT/PLAN: 1. Class 1 obesity without serious comorbidity with body mass index (BMI) of 31.0 to 31.9 in adult, unspecified obesity type - ICD9: 278.00, V85.31, ICD10: E66.9, Z68.31 (primary diagnosis) - Patient already part of [facility] and seeing dietitian - Discussed medications for weight loss including Contrave and Adipex. Patient willing to trial Wellbutrin first. - Encouraged patient to keep a food diary and limiting grazing/snacking throughout the day - Recommend regular exercise when able to tolerate - BUPROPION XL 150 MG TAB - Follow up scheduled in January with 2. Low T4 - ICD9: 794.5, ICD10: R94.6 - Incidental finding on patient's labs in September. Reviewed all results with patient. T4: 0.74 - Recommend repeating lab work at this time - TSH BLD - T4 FREE/FREE THYROX 3. Plantar fasciitis of left foot - ICD9: 728.71, ICD10: M72.2 - Recommend rest, ice, NSAIDs and foot stretching exercises - Informational handouts and exercises provided - Recommend wearing supportive shoes or inserts with dress shoes - Follow up in 1-2 weeks if no symptom improvement Ronn Cason APRN.[employer] Prescription instructions reviewed with patient as applicable. Potential red flag symptoms discussed with the patient. Reviewed appropriate action plan to take if red flag symptoms occur. Patient agreeable to treatment plan. CNOV Observed: 11/09/2017 Status: COMPLETED Source: [place] 10:00 AM [facility] REPOSITORY Office Visit (INTMWS) NGA ELIZONDO ([id number]) 1975 F Date Time Provider Department 11/09/17 10:00 AM RONN CASON ([employer]) INTMWS During your visit today, we recorded the following information about you: Pulse Respiration Blood pressure Weight 72/minute 18/minute 102/64 64.4 kg Ronn Cason ([facility]) 11/09/2017 11:03 AM Signed CC: Patient presents with: Recheck HPI Nga Elizondo is a 42 year old female who presents today for follow up of laboratory results and weight management and left heel pain. Patient started the [facility] ~5 months ago, meeting with a dietitian every other week and was working out ~5 days days per week for the past 4 months. She reports she has not seen results and has been frustrated. She isn't monitoring her diet as much nor is she working out currently as she has been experiencing left heel pain the past month. She would like to discuss alternatives for weight loss and to see if she could extend her time with the [facility]. Patient reports ongoing left heel pain that radiates up to the arch of foot. Pain is intermittent can be sharp or an ache, but occurs daily. She has taken ibuprofen and attempting stretching exercises which help some. Pain improves with rest and is exacerbated by extended ambulation. Denies any recent trauma or falls. Denies any numbness, tingling or weakness to LLE. REVIEW OF SYSTEMS General: no fevers, no chills, no night sweats, no recurrent infections, no change in appetite and no significant changes in weight HEENT: no frequent or significant headaches, no changes in hearing, no visual changes, no nose bleeds, no sinus or nasal problems Respiratory: no cough, no wheezing, no shortness of breath, no hemoptysis Cardiovascular: no chest pain, no chest pressure, no palpitations and no swelling GI: No nausea, vomiting, or diarrhea Musculoskeletal: See HPI Endocrine: no fatigue, no weight gain, no weight loss, no hair loss, no dry skin, no cold intolerance, no heat intolerance, no neck pain/pressure, no polyuria, no polyphagia and no polydipsia Neurologic: No headache, weakness, numbness, tingling, neck stiffness, tremor, vertigo, dizziness, memory loss, syncope. PAST MEDICAL HISTORY Diagnosis Date - NEGATIVE MEDICAL HISTORY PAST SURGICAL HISTORY Procedure Laterality Date - ANESTH, SECTION 04/29/2005 - PAST SURGICAL HISTORY OF wisdom teeth extract ALLERGIES Sulfa (Sulfonamide Antibiotics) MEDICATIONS multivitamin (DAILY MULTI-VITAMIN) ORAL tablet Take one(1) tablet daily. FAMILY HISTORY Problem Relation Age of Onset - Thyroid Mother hypothyroidism - Prostate Cancer Father - Diabetes Maternal Grandmother - Headache Paternal Grandmother - Colon Cancer Paternal Grandfather Social History Substance Use Topics - Smoking status: Never Smoker - Smokeless tobacco: Never Used - Alcohol use Yes Comment: rare PHYSICAL EXAM BP 102/64 (BP Site: Left Arm, BP Position: Sitting, BP Cuff Size: Regular Adult) Pulse 72 Resp 18 Wt 64.4 kg (142 lb) BMI 31.84 kg/m? General Appearance: well appearing, in no acute distress, alert Skin: Skin color, texture, turgor normal for age; Lungs: Lungs clear to auscultation. No wheezing, rhonchi, rales Heart: RRR without murmur, gallop, or rubs. No ectopy Musculoskeletal: No joint swelling, deformity, or tenderness Left Lower Extremity: Ankle: Full painless ROM, no joint tenderness, edema or erythema Foot: skin intact, no edema or deformity pain over the mid-heel and inner arch with palpation. MAMMOGRAM due on 06/14/2018 DTAP,TDAP,TD(2 - Td) due on 12/25/2018 PAP EVERY 5 YEARS due on 07/20/2022 HPV EVERY 5 YEARS due on 07/20/2022 INFLUENZA Completed ASSESSMENT/PLAN: 1. Class 1 obesity without serious comorbidity with body mass index (BMI) of 31.0 to 31.9 in adult, unspecified obesity type - ICD9: 278.00, V85.31, ICD10: E66.9, Z68.31 (primary diagnosis) - Patient already part of Why Weight and seeing dietitian - Discussed medications for weight loss including Contrave and Adipex. Patient willing to trial Wellbutrin first. - Encouraged patient to keep a food diary and limiting grazing/snacking throughout the day - Recommend regular exercise when able to tolerate - BUPROPION XL 150 MG TAB - Follow up scheduled in January with 2. Low T4 - ICD9: 794.5, ICD10: R94.6 - Incidental finding on patient's labs in September. Reviewed all results with patient. T4: 0.74 - Recommend repeating lab work at this time - TSH BLD - T4 FREE/FREE THYROX 3. Plantar fasciitis of left foot - ICD9: 728.71, ICD10: M72.2 - Recommend rest, ice, NSAIDs and foot stretching exercises - Informational handouts and exercises provided - Recommend wearing supportive shoes or inserts with dress shoes - Follow up in 1-2 weeks if no symptom improvement Ronn Cason APRN.NGOZI Prescription instructions reviewed with patient as applicable. Potential red flag symptoms discussed with the patient. Reviewed appropriate action plan to take if red flag symptoms occur. Patient agreeable to treatment plan. Referring Provider: KELSEY MILAN [[id number]] Allergies As of Date: 11/09/2017 Noted Allergy Reaction SULFA (SULFONAMIDE ANTIBIOTICS) 11/02/2008 2 - Rash Date Reviewed: 11/09/2017 Reviewed by: Mónica Rubio LPN - Fully Assessed Reason for Visit: Recheck [92] Primary Visit Diagnosis:Class 1 obesity without serious comorbidity with body mass index (BMI) of 31.0 to 31.9 in adult, unspecified obesity type [E66.9, Z68.31] Other Visit Diagnoses:Low T4 [R94.6] Plantar fasciitis of left foot [M72.2] Order(s):TSH BLD [SQTSH] Order #: [id number] FUTURE T4 FREE/FREE THYROX [SQFT4] Order #: [id number] FUTURE buPROPion XL (WELLBUTRIN XL) 150 mg 24 hr tabletTake 1 tablet by mouth once daily.Disp: 30 tabletRfl: 2 Prescriptions as of 11/09/2017 Sig: BUPROPION XL 150 MG TAB Take 1 tablet by mouth once d* * MULTIVITAMIN TABLET Take one(1) tablet daily. Problem List As Of Date 11/09/2017 Noted Resolved Cervicalgia [M54.2] INVALID FOR* Other symptoms involving head and neck [R68.89] INVALID FOR* Backache, unspecified [M54.9] INVALID FOR* Pain in joint, pelvic region and thigh [M25.559]INVALID FOR* Enlarged uterus [N85.2] INVALID FOR* Prescriptions ordered this encounter Disp Refills Start End BUPROPION XL 150 MG TAB 30 t* 2 11/09/2017 Route: ORAL Sig: Take 1 tablet by mouth once daily. Encounter Status:Closed by RONN CASON CNP on 11/09/17 CBC W/DIFF, AUTOMATED Collected: 09/23/2017 Status: F Source: [place] 8:45 AM [facility] [place] TYPE CODE TESTS RESULT OUT OF RANGE REFERENCE UNITS LAB L100.1000 4.4-11.0 K/mm3 Normal WBC 7.3 LAB L100.1200 4.2-5.4 M/mm3 Low RBC 4.19 LAB L100.1300 12.0-15.0 g/dl Normal HGB 12.1 LAB L100.1400 37-47 % Normal HCT 37.5 LAB L100.1500 81-99 fL Normal MCV 89.5 LAB L100.1600 27.0-32.0 pg Normal MCH 28.9 LAB L100.1700 32-36 g/gl Normal MCHC 32.3 LAB L100.1810 11.6-14.6 % Normal RDW CV 13.0 LAB L100.1820 35.1-43.9 fl Normal RDW SD 42.0 LAB L100.1900 150-450 K/mm3 Normal PLT 280 LAB L100.2000 6.2-12.0 fl Normal MPV 11.3 LAB L100.2100 47-70 % Normal NEUT% 62.1 LAB L100.2200 19-41 % Normal LY% 26.4 LAB L100.2300 0-10 % Normal MONO% 8.9 LAB L100.2400 0-5 % Normal EO% 2.2 LAB L100.2500 0-1 % Normal BASO% 0.3 LAB L100.2550 0.0-0.9 % Normal IM GRAN % 0.100 Result Comment: IG% - Immature Granulocytes (promyelocytes, myelocytes and metamyelocytes) > 1% indicates that a LEFT SHIFT is Present. LAB L100.2620 2.0-7.7 X10 3/uL Normal Absolute Neut 4.6 LAB L100.2720 0.83-4.51 X10 3/ul Normal Absolute Lymph 1.94 Performed By: #### L100.0100 #### [facility] [address] [place], [place], [address] COMPREHENSIVE METABOLIC Collected: 09/23/2017 Status: F Source: [facility] 8:45 AM [facility] [place] [facility] Order Comment: Has Patient had X-rays with Contrast this admission? N TYPE CODE TESTS RESULT OUT OF RANGE REFERENCE UNITS LAB L501.0100 74-106 mg/dL Normal GLU 86 Result Comment: Please note revised GLUCOSE reference range effective 2017. LAB L501.1000 7-18 mg/dL Normal BUN 16 LAB L501.1100 0.55-1.02 mg/dL Normal CREAT,SERUM 0.74 Result Comment: The validity of the calculated GFR AND GFRAA in patients over 70 years has not been determined. Clinical correlation is essential. LAB L501.1110 >60 mL/min Normal EST GFR 90 Result Comment: Non- GFR Calc LAB L501.1115 >60 mL/min Normal EST GFR - AA 109 Result Comment: GFR Calc LAB L501.1300 10-20 RATIO High BUN/CRE 21.6 LAB L501.1500 6.4-8.2 g/dL T Normal PROT 7.5 LAB L501.1800 3.2-5.0 g/dL Normal ALB 3.5 LAB L501.1950 2.2-4.2 g/dL Normal GLOB 4.0 LAB L501.2000 0.9-2.4 RATIO Normal A/G 0.9 LAB L501.2200 8.5-10.1 mg/dL CA Normal 8.5 LAB L501.4100 15-37 U/L Normal AST 19 LAB L501.4305 45-117 U/L Normal ALK P 69 LAB L501.4405 13-56 U/L Normal ALT 21 Result Comment: Please note revised ALT reference range effective 2017. LAB L501.4600 0.20-1.00 mg/dL Normal T BILI 0.20 LAB L501.5300 136-145 mmol/L Normal NA 139 LAB L501.5600 3.5-5.1 mmol/L Normal K 4.6 LAB L501.5900 98-107 mmol/L Normal CL 105 LAB L501.6100 21.0-32.0 mmol/L Normal CO2 29.0 LAB L501.6200 5-15 Normal GAP 5 Performed By: #### L500.4050, L500.4100, L501.9195, L501.9520, L506.0400 #### [facility] [address] [place], [address] LIPID PROFILE Collected: 09/23/2017 Status: F Source: [place] 8:45 AM [facility] [place] [facility] Order Comment: Has Patient had X-rays with Contrast this admission? N TYPE CODE TESTS RESULT OUT OF RANGE REFERENCE UNITS LAB L501.4900 200 mg/dL Normal CHOL 177 Result Comment: <200 mg/dL Desirable 200-240 mg/dL Borderline >240 mg/dL High Risk LAB L501.5000 mg/dL Normal TRIG 169 Result Comment: The drugs N-Acetylcysteine and Metamizole may falsely depress this assay. Serum Triglycerides Reference Interval Normal <150 mg/dL Borderline high 150 - 199 mg/dL High 200 - 499 mg/dL Very High > or = 500 mg/dL LAB L501.6400 mg/dL Normal HDL 72 Result Comment: The drugs N-Acetylcysteine and Metamizole may falsely depress this assay. Reference Range HDL <40 mg/dL Low HDL Cholesterol HDL >or= 60 mg/dL High HDL Cholesterol LAB L501.6500 0-130 mg/dL Normal LDL 71 LAB L501.6600 5-40 mg/dL Normal VLDL 34 Performed By: #### L500.4050, L500.4100, L501.9195, L501.9520, L506.0400 #### [facility] [address] [facility] [place], [address] T3 UPTAKE Collected: 09/23/2017 Status: F Source: [place] 8:45 AM [facility] [facility] Order Comment: Has Patient had X-rays with Contrast this admission? N TYPE CODE TESTS RESULT OUT OF RANGE REFERENCE UNITS LAB L501.9210 30-39 % 30 Normal T3 UPTAKE LAB L501.9410 1.4-4.5 Test Normal T7 (FTI) not performed Performed By: #### L500.4050, L500.4100, L501.9195, L501.9520, L506.0400 #### [facility] [address] [place], [address] THYROID STIM HORMONE Collected: 09/23/2017 Status: F Source: [place] (TSH) 8:45 AM [facility] Order Comment: Has Patient had X-rays with Contrast this admission? N TYPE CODE TESTS RESULT OUT OF RANGE REFERENCE UNITS LAB L501.9520 0.358-3.74 uIU/mL Normal TSH 3.33 Performed By: #### L500.4050, L500.4100, L501.9195, L501.9520, L506.0400 #### [facility] [address] [place], [address] T4 FREE DIRECT Collected: 09/23/2017 Status: F Source: [place] 8:45 AM [facility] Order Comment: Has Patient had X-rays with Contrast this admission? N TYPE CODE TESTS RESULT OUT OF REFERENCE UNITS RANGE LAB L506.0400 0.76-1.46 ng/dL Low T4 FREE 0.74 DIRECT Performed By: #### L500.4050, L500.4100, L501.9195, L501.9520, L506.0400 #### [facility] [address] [place], [address] PROGRESS Observed: 09/10/2017 Status: COMPLETED Source: [place] 8:37 AM [facility] [place] REPOSITORY HNO ID: [id number] Author: Kelsey Milan Service: (none) Author Type: Physician Type: Progress Notes Filed: 09/10/2017 1:16 PM Note Text: Reason for Visit Patient presents with: Establish Care: establish care transfer from Dr.Culman Nga Perkins Caro is a 42 year old female who presents here today for Above Complaints.. Health Maintenance There are no preventive care reminders to display for this patient. HPI Main concern is her weight, bmi is 31, she has been exercising regularly for the past 6 weeks, 5 days a week, cardio like elliptical machine and strength training, has not lost weight though, she has lost much inches But not got down sizes. Bf: oat meal in the morning, lunch time she is trying to have salads, she tries to have spaghetti at home and sometime pasta She has checked her tsh a few years ago, nothing recently. Notes being more fatigued and tired of late. No problem-specific Assessment AND Plan notes found for this encounter. PAST MEDICAL HISTORY Diagnosis Date - NEGATIVE MEDICAL HISTORY PAST SURGICAL HISTORY Procedure Laterality Date - ANESTH, SECTION 04/29/2005 - PAST SURGICAL HISTORY OF wisdom teeth extract FAMILY HISTORY Problem Relation Age of Onset - Thyroid Mother hypothyroidism - Prostate Cancer Father - Diabetes Maternal Grandmother - Headache Paternal Grandmother - Colon Cancer Paternal Grandfather Social History Substance Use Topics - Smoking status: Never Smoker - Smokeless tobacco: Never Used - Alcohol use Yes Comment: rare Past medical history, appointments, medications, allergies reviewed. Pertinent Lab/Diagnostic Studies are reviewed and discussed today Current Outpatient Prescriptions: - multivitamin (DAILY MULTI-VITAMIN) ORAL tablet Review of Systems CONSTITUTIONAL: No fevers, chills night sweats, unintended weight loss CARDIOVASCULAR: No chest pain, dyspnea, palpitations, orthopnea, PND, ankle edema. PULM: No dyspnea, unexplained cough. GI: No dysphagia/odynophagia, problematic reflux, constipation, diarrhea, changes in stool habits, hematochezia, melena. : No new urinary complaints, including dysuria, gross hematuria or pyuria. NEURO: No new balance problems, peripheral weakness/paresthesias or numbness of concern. Physical Exam BP 112/62 (BP Site: Left Arm, BP Position: Sitting, BP Cuff Size: Regular Adult) Pulse 78 Resp 12 Ht 142.2 cm (4' 8) Wt 64 kg (141 lb) LMP 08/25/2017 SpO2 96% BMI 31.61 kg/m2 General appearance: Well appearing, alert, in no acute distress, well nourished. Skin: Skin color, texture, turgor normal, no suspicious rashes or lesions Head: Normocephalic, no masses, lesions, tenderness or abnormalities Eyes: Anicteric sclera. Pupils are equally round and reactive to light. Extraocular movements are intact. Lungs: Lungs clear to auscultation. No wheezing, rhonchi, rales Heart: RRR without murmur, gallop, or rubs. ASSESSMENT/PLAN: 1. Class 1 obesity without serious comorbidity with body mass index (BMI) of 31.0 to 31.9 in adult, unspecified obesity type - ICD9: 278.00, V85.31, ICD10: E66.9, Z68.31 (primary diagnosis) - TSH BLD - T3 BLD - T4 FREE/FREE THYROX 2. Lipid screening - ICD9: V77.91, ICD10: Z13.220 - LIPID PANEL BASIC 3. Other fatigue - ICD9: 780.79, ICD10: R53.83 - CBC + DIFF - COMP METABOLIC PANEL KELSEY MILAN MD CNOV Observed: 09/10/2017 Status: COMPLETED Source: [facility] 8:20 AM [facility] Office Visit (INTMWS) NGA ELIZONDO ([id number]) 1975 F Date Time Provider Department 09/10/17 8:20 AM KELSEY MILAN INTMWS During your visit today, we recorded the following information about you: Pulse Respiration Blood pressure Weight 78/minute 12/minute 112/62 64 kg Height Last Period 1.422 m 08/25/17 KELSEY MILAN MD 09/10/2017 1:16 PM Signed Reason for Visit Patient presents with: Establish Care: establish care transfer from Dr.Culman Nga Perkins Caro is a 42 year old female who presents here today for Above Complaints.. Health Maintenance There are no preventive care reminders to display for this patient. HPI Main concern is her weight, bmi is 31, she has been exercising regularly for the past 6 weeks, 5 days a week, cardio like elliptical machine and strength training, has not lost weight though, she has lost much inches But not got down sizes. Bf: oat meal in the morning, lunch time she is trying to have salads, she tries to have spaghetti at home and sometime pasta She has checked her tsh a few years ago, nothing recently. Notes being more fatigued and tired of late. No problem-specific Assessment ANDamp; Plan notes found for this encounter. PAST MEDICAL HISTORY Diagnosis Date - NEGATIVE MEDICAL HISTORY PAST SURGICAL HISTORY Procedure Laterality Date - ANESTH, SECTION 04/29/2005 - PAST SURGICAL HISTORY OF wisdom teeth extract FAMILY HISTORY Problem Relation Age of Onset - Thyroid Mother hypothyroidism - Prostate Cancer Father - Diabetes Maternal Grandmother - Headache Paternal Grandmother - Colon Cancer Paternal Grandfather Social History Substance Use Topics - Smoking status: Never Smoker - Smokeless tobacco: Never Used - Alcohol use Yes Comment: rare Past medical history, appointments, medications, allergies reviewed. Pertinent Lab/Diagnostic Studies are reviewed and discussed today Current Outpatient Prescriptions: - multivitamin (DAILY MULTI-VITAMIN) ORAL tablet Review of Systems CONSTITUTIONAL: No fevers, chills night sweats, unintended weight loss CARDIOVASCULAR: No chest pain, dyspnea, palpitations, orthopnea, PND, ankle edema. PULM: No dyspnea, unexplained cough. GI: No dysphagia/odynophagia, problematic reflux, constipation, diarrhea, changes in stool habits, hematochezia, melena. : No new urinary complaints, including dysuria, gross hematuria or pyuria. NEURO: No new balance problems, peripheral weakness/paresthesias or numbness of concern. Physical Exam BP 112/62 (BP Site: Left Arm, BP Position: Sitting, BP Cuff Size: Regular Adult) Pulse 78 Resp 12 Ht 142.2 cm (4' 8ANDquot;) Wt 64 kg (141 lb) LMP 08/25/2017 SpO2 96% BMI 31.61 kg/m2 General appearance: Well appearing, alert, in no acute distress, well nourished. Skin: Skin color, texture, turgor normal, no suspicious rashes or lesions Head: Normocephalic, no masses, lesions, tenderness or abnormalities Eyes: Anicteric sclera. Pupils are equally round and reactive to light. Extraocular movements are intact. Lungs: Lungs clear to auscultation. No wheezing, rhonchi, rales Heart: RRR without murmur, gallop, or rubs. ASSESSMENT/PLAN: 1. Class 1 obesity without serious comorbidity with body mass index (BMI) of 31.0 to 31.9 in adult, unspecified obesity type - ICD9: 278.00, V85.31, ICD10: E66.9, Z68.31 (primary diagnosis) - TSH BLD - T3 BLD - T4 FREE/FREE THYROX 2. Lipid screening - ICD9: V77.91, ICD10: Z13.220 - LIPID PANEL BASIC 3. Other fatigue - ICD9: 780.79, ICD10: R53.83 - CBC + DIFF - COMP METABOLIC PANEL MD KELSEY GIL MD 09/10/2017 8:59 AM Signed Ki stretches Referring Provider: SELF [200] Allergies As of Date: 09/10/2017 Noted Allergy Reaction SULFA (SULFONAMIDE ANTIBIOTICS) 11/02/2008 2 - Rash Date Reviewed: 09/10/2017 Reviewed by: Flores Barnes LPN - Fully Assessed Reason for Visit: Establish Care [42] Cmt: establish care transfer from Primary Visit Diagnosis:Class 1 obesity without serious comorbidity with body mass index (BMI) of 31.0 to 31.9 in adult, unspecified obesity type [E66.9, Z68.31] Other Visit Diagnoses:Lipid screening [Z13.220] Other fatigue [R53.83] Order(s):TSH BLD [SQTSH] Order #: [id number] FUTURE T3 BLD [SQT3] Order #: [id number] FUTURE T4 FREE/FREE THYROX [SQFT4] Order #: [id number] FUTURE LIPID PANEL BASIC [SQLIPB] Order #: [id number] FUTURE CBC + DIFF [SQCBCDIF] Order #: [id number] FUTURE COMP METABOLIC PANEL [SQCMP] Order #: [id number] FUTURE Prescriptions as of 09/10/2017 Sig: * MULTIVITAMIN TABLET Take one(1) tablet daily. Problem List As Of Date 09/10/2017 Noted Resolved Cervicalgia [M54.2] INVALID FOR* Other symptoms involving head and neck [R68.89] INVALID FOR* Backache, unspecified [M54.9] INVALID FOR* Pain in joint, pelvic region and thigh [M25.559]INVALID FOR* Enlarged uterus [N85.2] INVALID FOR* Other instructions from your clinician: Ki rizo Encounter Status:Closed by KELSEY MILAN MD on 09/10/17 ALLERGIES ALLERGIES DATE TYPE / CODE NAME / CODE REACTION SEVERITY SOURCE 06/22/2018 Drug Sulfa WHOLE BODY RASH [facility])/ Repository CT) [id number](RX NORM) 11/02/2008 Drug SULFA RASH [facility] Class/461798 (SULFONAMIDE [facility] 003(SNOMED ANTIBIOTICS) Repository CT) ENCOUNTERS ENCOUNTERS ADMIT/DISCHARGE ACCOUNT ADMITTING ENCOUNTER LOCATION SOURCE NUMBER CLASS 06/22/2018/06/22/20 [id number] Amb[place] [facility] [place] [place]/16[place]2018 [id number] [place] BMS[place] [place] 06/16/2018/06/16/20 [id number] Ambulatory [address] Hospital ing:SDCRoom: Repository AC17 06/15/2018 [id number] Ambulatory BMSBuilding[place]oya Curran [place] [place] 05/12/2018/05/12/20 [id number] Ambulatory BMSBuilding:Latoya [place] [facility] [place] [place] 05/07/2018/05/09/20 [id number] Ambulatory [address] [place] Repository 04/11/2018/04/12/20 [id number] Ambulatory [address] Repository 02/11/2018/02/15/20 [id number] Ambulatory [address] Repository 01/12/2018/01/14/20 [id number] Ambulatory [address] Repository 12/14/2017/01/22/20 [id number] Ambulatory [address] Repository 11/19/2017 [id number] Ambulatory [facility] Hospital ing:NS Repository 11/09/2017/11/18/19 [id number] Ambulatory [address] [place] Repository 11/09/2017/11/11/19 [id number] Ambulatory [address] Repository 10/29/2017/11/02/19 [id number] Ambulatory [address] Hospital ing:NS Repository 10/01/2017/10/03/19 [id number] Ambulatory [address] Hospital ing:NS Repository 09/23/2017 [id number] Ambulatory [facility] Hospital ing:[facility] Repository 09/10/2017/09/15/19 [id number] Ambulatory [address] [place] Repository 08/20/2017/09/01/19 [id number] Ambulatory [address] Hospital ing:NS Repository PAYERS PAYERS ENCOUNTER GUARANTOR PAYER SUBSCRIBER SOURCE 06/22/2018 ANDREW TAN Gregorio Curran [id number] Insurance:MEDICAL MCMULLENDOB: [facility] feedPack TREE [facility] [id number] Number: Repository [id number]: [phone] [id number] [phone] (HP) Date:2568-27-34EP [address] [place] [phone]: 06/22/2018 Secondary NOT GIVENUNK [place] Insurance:SELF PAY [facility] Number: Effective Repository Date:2018-06-22 06/16/2018 ANDREW Curran [id number] Insurance:MEDICAL MCMULLENDOB: Community [employer] [facility] [id number], [place] Number: Repository [id number]: [phone] [id number] [phone] (HP) Date:4035-19-45CS [address] [phone]: 06/16/2018 Secondary NOT GIVENUNK [place] Insurance:SELF PAY [facility] Number: Effective Repository Date:2018-06-16 06/16/2018 ANDREW Rodriguesoster [id number] Insurance:MEDICAL MCMULLENDOB: [facility] BENT TREE [facility] [id number], [place] Number: Repository [id number]: [phone] [id number] [phone] () Date:4245-71-57LA [address] [phone]: 06/16/2018 Secondary NOT GIVENUNK [place] Insurance:SELF PAY [facility] Number: Effective Repository Date:2018-05-30 06/15/2018 ANDREW Curran [id number] Insurance:MEDICAL MCMULLENDOB: Community [place] [facility] [id number], [place] Number: Repository [id number]: [phone] [id number] [phone] () Date:2029-48-61ZU [address] [phone]: 06/15/2018 Secondary NOT GIVENUNK [place] Insurance:SELF PAY [facility] Number: Effective Repository Date:2018-06-15 05/12/2018 NGA Perkins Primary NGA Curran [id number] Insurance:MEDICAL MCMULLENDOB: Community [employer] [facility] [id number], [place] Number: Repository [id number]: [phone] [id number] [phone] (HP) Date:3066-76-71JY [address], [place] [address]XZ: 05/12/2018 Secondary NOT GIVENUNK [place] Insurance:SELF PAY [facility] Number: Effective Repository Date:2018-05-02 11/19/2017 Andrew Perkins [place] [id number] Insurance:AETNAPolicy MCMULLENDOB: Community [place] Number: [id number] [id number] Repository [address]Nwn: [phone]) Date:8963-53-55JE [phone] (HP) [id number] CONNOR [address]PQ: 11/19/2017 Secondary NOT GIVENUNK [place] Insurance:SELF PAY [facility] Number: Effective Repository Date:2017-11-02 10/29/2017 Andrew Perkins [place] [id number] Insurance:AETNAPolicy RAMIREZULLENDOB: Community [place] Number: [id number], [place] [id number] Repository [address]Eke: [phone]) Date:6715-23-52BF [phone] (HP) [phone] CONNOR [phone]: 10/29/2017 Secondary NOT GIVENUNK [place] Insurance:SELF PAY [facility] Number: Effective Repository Date:2017-10-03 10/01/2017 Andrew Perkins [place] [id number] Insurance:AETNAPolicy RAMIREZULLENDOB: Community [place] Number: [id number], [place] [id number] Repository [address]Zbp: [phone]) Date:3820-00-56LS [phone] (HP) [phone] CONNOR [phone]: 10/01/2017 Secondary NOT GIVENUNK [place] Insurance:SELF PAY [facility] Number: Effective Repository Date:2017-09-02 09/23/2017 Primary NOT GIVENUNK Magdy [id number] Insurance:SELF PAY [facility] [place] Number: Effective Repository [id number]: [phone] Date:2017-09-23 [phone] () 08/20/2017 Primary NGA A Magdy [id number] Insurance:AETNASarah CLARKENDOB: [facility] [place]: [id number] [id number] Repository [id number]: ([phone]) Date:[phone] () [id number] DEBRA MARI [id number]: 08/20/2017 Secondary NOT GIVENUNK [place] Insurance:SELF PAY [facility] Number: Effective Repository Date:2017-08-05
== END 2018-06-16 12:15 | disposition home or self-care (01) ==
LOC: SDC 08:08 → AC 08:09
PROVIDERS: Anesthesiology; Family Provider Internal Medicine; PCP Internal Medicine; Referring Provider Surgery; Visit Provider Surgery
PROC: (CPT 400; principal; 2018-06-16 09:40)
DX: N60.81 Other benign mammary dysplasias of right breast (principal); N60.31 Fibrosclerosis of right breast
CPT/HCPCS: 19120; 81025; 87070; 87075; 87102; 87205; 87206; 88304; 88305; J7120